=== PATIENT | male | born 1955 | race Caucasian/White ===

== ENCOUNTER 2019-10-05 12:04 | Outpatient (CLI) | payer OTHER, SELFPAY ==
--- NOTE | ~2019-10-05 | CT_ITS ---
EXAMINATION: CT abdomen pelvis wo con DATE: 10/05/2019 13:09 INDICATION: Left lower quadrant pain TECHNIQUE: Computed tomography (CT) of the abdomen and pelvis was performed without intravenous contr ast. The dose-length product was 762.38 mGy-cm. Automated exposure control and iterative reconstructi on technique were employed. COMPARISON: None. FINDINGS: Lung bases unremarkable. Heart size normal. No significant pleural or pericardial effusion. No significant vascular abnormality. No lymphadenopathy. There is a probable The liver, spleen, pancreas, adrenal glands and kidneys are unremarkable. Nonobstructive bowel gas pa ttern. Normal appendix. No evidence for appendicitis or diverticulitis. Subtle posterior bladder wall mass containing a punctate calcification. This mass measures approximately 5.5 x 4 cm and could repr esent blood clot or enlarged prostate gland. Recommend urological consultation. No hydronephrosis. IMPRESSION: 1. Possible bladder wall mass, suspicious for malignancy. Differential diagnosis includes blood clot and enlarged prostate gland causing significant bladder base impression. Recommend urological consult ation. Reviewed, dictated and finalized at location B. IMPRESSION: 1. Possible bladder wall mass, suspicious for malignancy. Differential diagnosi s includes blood clot and enlarged prostate gland causing significant bladder b ase impression. Recommend urological consultation.
== END 2019-10-05 12:05 | disposition home or self-care (01) ==
LOC: ANHIMG 12:06
PROVIDERS: PCP Internal Medicine; Visit Provider Internal Medicine
DX: R10.32 Left lower quadrant pain (principal)
CPT/HCPCS: 74176

== ENCOUNTER → 2020-05-12 06:51 | Outpatient (CLI) | payer OTHER, SELFPAY ==
[2020-05-12 21:58] LABS: SARS-CoV-2 RNA PCR Positive
== END ==
PROVIDERS: PCP Internal Medicine; Visit Provider Internal Medicine
DX: U07.1 COVID-19 (principal)
CPT/HCPCS: C9803; U0003; U0005

== ENCOUNTER 2020-06-07 10:27 | Outpatient (CLI) | payer OTHER, SELFPAY ==
[2020-06-07 10:48] LABS: Basophils Percent Auto 0.3 % (0.2-1.2); Eosinophils Absolute Auto 0.1 K/mm3 (0-0.3); Hematocrit 42.6 % (42.0-52.0); Hemoglobin 14.7 g/dL (14.0-18.0); Immature Granulocyte Absolute 0.02 K/mm3 (0.00-0.031); Immature Granulocyte Percent A 0.3 % (0-0.5); Lymphocytes Absolute Auto 1.12 K/mm3 (0.9-3.2); Mean Corpuscular HGB Conc 34.5 g/dl (32-36); Mean Corpuscular Hemoglobin 28.4 pg (26-34); Mean Corpuscular Volume 82.2 fl (80-100); Mean Platelet Volume 10.4 fl (7.4-10.4); Monocytes Absolute Auto 0.8 K/mm3 (0.1-0.6); Monocytes Percent Auto 11.6 % (2.6-8.5); Neutrophils Percent Auto 70.8 % (45.5-73.1); Platelet Count Result 230 k/mm3 (150-375); Red Blood Count 5.18 M/mm3 (4.6-6.20)
[2020-06-07 10:53] LABS: Add Urine Microscopic? YES; Appearance Urine Cloudy (Clear); Bacteria Urine Trace /hpf; Bilirubin Urine Negative (Negative); Blood Urine Negative (Negative); Color Urine Amber (Yellow); Glucose Urine UA Negative (Negative); Ketones Urine Negative (Negative); Leukocyte Esterase Ur Trace LEU/UL (Negative); Mucus Urine Heavy /lpf; Nitrate Urine Negative (Negative); Protein Urine 2+ mg/dL (Negative); Specific Grav Ur 1.017 (1.001-1.035); Squamous Epithelial Cell Urine Occasional /hpf (Few); Urobilinogen Urine Negative mg/dL (<2.0)
[2020-06-07 11:00] LABS: Alanine Aminotransferase 23 U/L (4-50); Albumin Level 3.9 g/dL (3.5-5.1); Alkaline Phosphatase 66 U/L (38-126); Anion Gap 7 mmol/L (8-16); Aspartate Amino Transferase 25 U/L (17-59); Blood Urea Nitrogen 8 mg/dL (9-20); Calcium 9.2 mg/dL (8.4-10.2); Carbon Dioxide 29 mmol/L (22-30); Chloride 103 mmol/L (98-107); Estimated Glomerular Filt Rate > 60; Glucose 140 mg/dL (75-110); Sodium 139 mmol/L (137-145)
[2020-06-07 11:01] LABS: D Dimer 0.75 ug/mL (<0.48)
== END 2020-06-07 10:28 | disposition home or self-care (01) ==
PROVIDERS: PCP Internal Medicine; Visit Provider Internal Medicine
DX: U07.1 COVID-19 (principal); R11.2 Nausea with vomiting, unspecified
CPT/HCPCS: 36415; 80053; 81001; 85025; 85380; 87086

== ENCOUNTER 2020-10-17 12:22 | Outpatient (CLI) | payer OTHER, SELFPAY ==
--- NOTE | ~2020-10-17 | US_ITS ---
EXAMINATION: US venous doppler LE RT EXAM DATE: 10/17/2020 12:59 INDICATION: Pain And Swelling Of Right Lower Leg Pain And Swelling . TECHNIQUE: Multiple grayscale, color flow and Doppler images of the right lower extremity deep venous system were obtained and reviewed. There is no prior study for comparison. FINDINGS: The right common femoral, femoral and profunda veins demonstrate normal color flow, respira tory variation, augmentation and compressibility. Compressibility, color flow confirmed within the r ight popliteal, posterior tibial, peroneal, and greater saphenous veins. IMPRESSION: 1. No right lower extremity deep venous thrombosis. Reviewed, dictated and finalized at location B.
== END 2020-10-17 12:23 | disposition home or self-care (01) ==
PROVIDERS: PCP Internal Medicine; Visit Provider Internal Medicine
DX: M79.89 Other specified soft tissue disorders (principal)
CPT/HCPCS: 93971

== ENCOUNTER 2020-10-30 16:42 | Outpatient (CLI) | payer OTHER, SELFPAY ==
--- NOTE | ~2020-10-30 | CT_ITS ---
EXAMINATION: CT abdomen pelvis wo con DATE: 10/30/2020 17:31 INDICATION: Right upper quadrant abdominal pain. TECHNIQUE: Computed tomography (CT) of the abdomen and pelvis was performed without intravenous contr ast. Automated exposure control and iterative reconstruction technique were employed. The dose-length product was 997.46 mGy-cm. COMPARISON: 10/05/2019 FINDINGS: Lung bases are clear. Heart size is normal. No pericardial or pleural effusion. Small sliding-type hi atal hernia. Ununited healing subacute fractures of the posterior right seventh-ninth ribs. Approxima tely 3.7 x 2.9 cm hypodense greater than fluid attenuation mass with poorly defined margins at the ju nction of segments 4A and 4B of the liver which appears new since the prior study. Gallbladder, splee n, pancreas, bilateral adrenal glands and kidneys are normal. No urolithiasis or hydronephrosis. Blad beatrice is normal. Prostatomegaly with a few tiny prostatic calcifications. Moderate to large amount of s tool scattered throughout the colon. Small bowel and appendix are normal. No free intraperitoneal gas or fluid. No pathologically enlarged abdominal or pelvic lymphadenopathy. Mild thoracolumbar spondyl osis. IMPRESSION: 1. Indeterminate 3.7 x 2.9 cm hypodense region in the left hepatic lobe which is new since the prior study. There is a wide differential including focal fat, hemangioma, focal nodular hyperplasia, and m alignancy either primary or metastatic. Differential would also include hepatic abscess in the approp riate clinical setting although the mass abuts the liver capsule with no adjacent inflammatory strand ing to more specifically suggest this. Would recommend pre and postcontrast MRI for further evaluatio n. 2. Small sliding-type hiatal hernia. 3. Ununited healing subacute fracture the posterior right seventh-ninth ribs. 4. Prostatomegaly. Reviewed, dictated and finalized at location A. IMPRESSION: 1. Indeterminate 3.7 x 2.9 cm hypodense region in the left hepatic lobe which i s new since the prior study. There is a wide differential including focal fat, hemangioma, focal nodular hyperplasia, and malignancy either primary or metasta tic. Differential would also include hepatic abscess in the appropriate clinica l setting although the mass abuts the liver capsule with no adjacent inflammato ry stranding to more specifically suggest this. Would recommend pre and postcon trast MRI for further evaluation. 2. Small sliding-type hiatal hernia. 3. Ununited healing subacute fracture the posterior right seventh-ninth ribs. 4. Prostatomegaly.
== END 2020-10-30 16:43 | disposition home or self-care (01) ==
PROVIDERS: PCP Internal Medicine; Visit Provider Internal Medicine
DX: R10.811 Right upper quadrant abdominal tenderness (principal); R93.2 Abnormal findings on diagnostic imaging of liver and biliary tract; K44.9 Diaphragmatic hernia without obstruction or gangrene; S22.31XK Fracture of one rib, right side, subsequent encounter for fracture with nonunion; N40.0 Benign prostatic hyperplasia without lower urinary tract symptoms
CPT/HCPCS: 74176

== ENCOUNTER 2020-11-29 09:51 | Outpatient (CLI) | payer OTHER, SELFPAY ==
--- NOTE | ~2020-11-29 | US_ITS ---
EXAMINATION: US right upper quadrant EXAM DATE: 11/29/2020 10:22 INDICATION: Other Specified Diseases Of Liver. Liver Lesion . TECHNIQUE: Multiple grayscale and Doppler images of the abdomen right upper quadrant were obtained (b y a technologist who performed the scan) and subsequently reviewed. Correlation is made to CT . FINDINGS: The pancreatic head and body are normal in appearance. The pancreatic tail is not visualized. The l iver has normal echogenicity and contour. There is geographically shaped peripheral hyperechoic lulu on measuring 3.6 x 2.8 x 2.8 cm. Appearance is consistent with focal fatty infiltration, but is not s pecific for that diagnosis. There is no evidence of intrahepatic biliary duct dilation. Portal veno us flow was seen in the hepatopedal, normal direction and has normal Doppler waveform. No right-side d hydronephrosis. Common bile duct measures 4 mm, which is normal. The gallbladder wall is normal in thickness, with ex pected amount of distention. No sonographic evidence of pericholecystic fluid. There is no cholelit hiases. Technologist performing exam reports patient did not demonstrate sonographic Ribeiro's sign. Please note that this sign is less reliable in patients who have received pain medication. IMPRESSION: Focal liver region sonographically consistent with hepatic steatosis, but not specific fo r that diagnosis. Reviewed, dictated and finalized at location A. IMPRESSION: Focal liver region sonographically consistent with hepatic steatosi s, but not specific for that diagnosis.
== END 2020-11-29 09:52 | disposition home or self-care (01) ==
LOC: ANHIMG 09:57
PROVIDERS: PCP Internal Medicine
DX: K76.89 Other specified diseases of liver (principal)
CPT/HCPCS: 76705

== ENCOUNTER 2021-02-09 08:58 | Outpatient (CLI) | payer OTHER, SELFPAY ==
--- NOTE | ~2021-02-09 | CT_ITS ---
EXAMINATION: CT abdomen w con DATE: 02/09/2021 09:55 INDICATION: Right-sided abdominal pain for 5 months TECHNIQUE: Computed tomography (CT) of the abdomen was performed without intravenous contrast. Automa amparo exposure control and iterative reconstruction technique were employed. Exam dose: 1442.44 mGy-cm total exam DLP. COMPARISON: None. FINDINGS: The lung bases are clear of infiltrate or consolidation. Normal heart size. No pericardial or pleural effusion. The liver, spleen, pancreas, and adrenal glands and kidneys are unremarkable with the exception of 6 mm probable upper pole right renal cyst. The gallbladder is unremarkable. No bile duct or pancreatic duct dilatation. No urinary tract calculus or hydroureteronephrosis. Normal caliber of the abdominal aorta. No intraperitoneal or retroperitoneal mass lesion or adenopath y or ascites. Small sliding hiatal hernia. Normal appendix. No bowel obstruction, bowel wall thickening, pneumatosis or intraperitoneal free air is detected. Small fat-containing umbilical hernia. Healing posterior lateral right seventh through ninth rib fractures. Diffuse idiopathic skeletal hyperostosis of the lower thoracic spine. IMPRESSION: Healing posterolateral right seventh through ninth rib fractures Normal appendix 6 mm upper pole right renal cyst Small sliding hiatal hernia Small fat-containing umbilical hernia Reviewed, dictated and finalized at Location A. Reviewed, dictated and finalized at location A. PRESERVATION SCIENTIST
[2021-02-09 09:57] LABS: Estimated Glomerular Filt Rate > 60
== END 2021-02-09 08:59 | disposition home or self-care (01) ==
PROVIDERS: PCP Internal Medicine
DX: K76.9 Liver disease, unspecified (principal); S22.41XD Multiple fractures of ribs, right side, subsequent encounter for fracture with routine healing; N28.1 Cyst of kidney, acquired; K44.9 Diaphragmatic hernia without obstruction or gangrene; K42.9 Umbilical hernia without obstruction or gangrene
CPT/HCPCS: 74160; Q9967

== ENCOUNTER 2021-03-01 11:00 | Outpatient (RCR) | payer OTHER, SELFPAY ==
--- NOTE | 2021-02-06 15:47 | PTOPEVAL ---
PHYSICAL THERAPY EVALUATION AND PLAN OF CARE Thank you for referring Will June to [facility].? The patient is scheduled to be seen for therapy? 1-2x/week for 3-4 weeks. Please review, sign, date and return this plan of care MAGUI. I agree with and certify that the following plan of care is medically necessary. Referring Physician Date Attending Provider: Yosvany Cowan, DO Evaluation Diagnosis right sided rib pain Onset 09/27/2020 Additional Evaluation Detail throughout session patient would tell me that each activity hurts and feels it . I would ask him how much it hurts and he would say a 5/ 10, which is the amount of pain he said he has just at rest. With that, educated him and instructed that if he is doing an activity and it has a 5-6/10 pain that it is ok and he just take him time, but if the pain increases to a 7/10 or higher that he needs to back off for now while the ribs continue to heal Subjective Information fell as work resulting in 4 Query Text:As Reported By Patient/ rib fracutres on the right Family side - lower ribs. States that holding his arms overhead or sitting up from laying in bed cause a lot of pain in the right ribs still today. States that he did go back to work and it made the pain even worse than before. 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 Twisting motions, sweeping, getting into/out of low cars, opening car doors are all aggravating. His last x-ray was a month ago and it showed there was still some fracture- still healing. states he had an ultrasound done and something was identified on his liver, but is having another imaging study done this Friday to determine what it is Self Report Pain Assessment Right Ribs Reported Pain
--- NOTE | 2021-03-01 11:28 | PTOPEVAL ---
PHYSICAL THERAPY DISCHARGE NOTE Thank you for referring Will June to [facility].? Please review, sign, date and return this plan of care MAGUI. I agree with and certify that the following plan of care is medically necessary. Referring Physician Date Attending Provider: Yosvany Cowan, DO Discharge Diagnosis right sided rib pain Onset 09/27/2020 Subjective Information States that he was doing very Query Text:As Reported By Patient/ well execpt that he was sick Family from the booster shot and vomiting made the ribs hurt again. States that he has had all of the imaging that was ordered. Self Report Pain Assessment Right Ribs Reported Pain Level 6 Pain Description Dull,Tender on Palpation Other Pain Description stiffness; pain Pain Score Pain Score 6: Self Report Interventions Used Interventions Used By Clinicians Exercise,Heat Pain Relief Interventions Used By Ice Patient Other Alleviating Interventions instructed he might try heat over ribs at home Upper Extremity Muscle Strength Testing Scapular/Shoulder Left Shoulder Flexion Strength 4+ Good + Shoulder Extension Strength 4+ Good + Shoulder Abduction Strength 4+ Good + Shoulder Medial Rotation Strength 4+ Good + Shoulder Lateral Rotation Strength 4+ Good + Right Shoulder Flexion Strength 4+ Good + Shoulder Extension Strength 4+ Good + Shoulder Abduction Strength 4+ Good + Shoulder Medial Rotation Strength 4+ Good + Shoulder Lateral Rotation Strength 4+ Good + Shoulder Strength Comments pain in right lower ribs with MMT Palpation Assessment Palpation Palpation less sensitive to palpation over right ribs. Gait Assessment Gait Pattern Assessment Gait Pattern No Deviations/Normal Stair Climbing Assessment Stair Climbing Assessment Stair Climbing Assistive Devices Railings Number of Steps Climbed (Steps) 4 Number of Repetitions (Repetitions) 2 Technique Alternating Steps Stair Climbing Direction Both Up and Down Stair Climbing Ability Independent Rehab Teaching Rehab Teaching Teaching Topic Rehab Teaching Topic Components Exercise,Home Program As Pertains To Safety,Technique Recipient Patient Learning Preferences Demonstration,Discussion,Group Instruction,One-on-One Instruction Barriers to Learning None Readiness to Learn
== END 2021-04-23 09:30 | disposition home or self-care (01) ==
LOC: ANHPT 11:00
PROVIDERS: PCP Internal Medicine; Visit Provider Student in an Organized Health Care Education/Training Program
DX: R07.81 Pleurodynia (principal); S22.41XD Multiple fractures of ribs, right side, subsequent encounter for fracture with routine healing
CPT/HCPCS: 97110; 97163

== ENCOUNTER 2023-11-29 09:01 | Emergency (ER) | payer OTHER, SELFPAY ==
[2023-11-29 09:18] VITALS: BP 178/89; PULSE 77; RESP 18; TEMP 36.4; O2SAT 100
--- NOTE | 2023-11-29 09:20 | ED.GENADULT ---
HPI - General Adult General Chief complaint: Upper Respiratory Infection Stated complaint: covid test Time Seen by Provider: 11/29/23 09:20 Source: patient Mode of arrival: ambulatory Limitations: no limitations History of Present Illness HPI narrative: 68-year-old male patient presents the [facility] with request for COVID testing. Patient states his son who lives with them tested positive about 2 days ago and he started having symptoms yesterday. Patient states symptoms include cough, very slight shortness of breath at times, denies chest pain. Patient states no fevers but has had some chills and sweats at night. Denies any pain at this time. Related Data Home Medications Medication Instructions Recorded Confirmed blood sugar diagnostic (Contour 11/29/23 11/29/23 Next Test Strips) empagliflozin 25 mg tablet 25 mg PO DAILY 11/29/23 11/29/23 (Jardiance) finasteride 5 mg tablet 5 mg PO DAILY 11/29/23 11/29/23 gabapentin 100 mg capsule 100 mg PO TID 11/29/23 11/29/23 glimepiride 2 mg tablet 2 mg PO DAILY 11/29/23 11/29/23 lisinopril 10 mg tablet 10 mg PO DAILY 11/29/23 11/29/23 meloxicam 15 mg tablet 15 mg PO DAILY 11/29/23 11/29/23 metformin 500 mg tablet,extended 1,000 mg PO BID 11/29/23 11/29/23 release 24 hr prednisone 20 mg tablet See Rx Instructions .Route .COMPLEX 11/29/23 11/29/23 rosuvastatin 10 mg tablet 10 mg PO DAILY 11/29/23 11/29/23 semaglutide 14 mg tablet (Rybelsus) 14 mg PO DAILY 11/29/23 11/29/23 sildenafil 100 mg tablet 100 mg PO PRN PRN Erectile 11/29/23 11/29/23 Dysfunction tamsulosin 0.4 mg capsule 0.4 mg PO DAILY 11/29/23 11/29/23 Allergies Allergy/AdvReac Type Severity Reaction Status Date / Time Sulfa (Sulfonamide Allergy Mild Swelling Unverified 01/14/16 08:44 Antibiotics) calamine Allergy Unknown Verified 01/14/16 08:44 diphenhydramine Allergy Unknown Verified 01/14/16 08:44 prednisone Allergy Unknown Verified 01/14/16 08:44 TRIAMCINOLONE ACETONIDE Allergy Unknown Uncoded 01/14/16 08:44 Review of Systems Review of Systems: CONSTITUTIONAL: Denies fever, Positive chills, and sweats. EYES: Denies visual changes, redness, or discharge. ENT: positive rhinorrhea, congestion, denies sore throat, denies otalgia. CARDIOVASCULAR: Denies chest pain, palpitations, or edema. RESPIRATORY: positive mild cough with very slight dyspnea. GASTROINTESTINAL: Denies abdominal pain, nausea, vomiting, or diarrhea. GENITOURINARY: Denies dysuria or hematuria. SKIN: Denies rash or itching. MUSCULOSKELETAL: Denies back pain, joint pain, or myalgia. NEUROLOGIC: Denies headache, numbness, or weakness. PSYCHIATRIC: Denies anxiety or depression. 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 There is no relevant family history pertinent to the presenting complaint. Exam Narrative: GENERAL: Well-appearing, well-nourished, and in no acute distress. HEAD: Normocephalic, atraumatic. EYES: PERRLA and EOMI. ENT: Nares clear, no rhinorrhea or epistaxis. Mucous membranes moist. NECK: Supple. No lymphadenopathy CHEST: Clear to auscultation. No respiratory distress. HEART: Regular rate and rhythm. No murmur heard. Normal peripheral pulses. ABDOMEN: Soft, nontender, nondistended, normal active bowel sounds. EXTREMITIES: Normal range of motion. No edema. SKIN: Warm, dry, no r
== END 2023-11-29 09:58 | disposition home or self-care (01) ==
PROVIDERS: Emergency Provider Nurse Practitioner Family; PCP Internal Medicine
DX: J06.9 Acute upper respiratory infection, unspecified (principal); Z20.822 Contact with and (suspected) exposure to COVID-19; K21.9 Gastro-esophageal reflux disease without esophagitis; E11.9 Type 2 diabetes mellitus without complications; Z79.84 Long term (current) use of oral hypoglycemic drugs; Z85.828 Personal history of other malignant neoplasm of skin
CPT/HCPCS: 87426; 99212; G0463

== ENCOUNTER 2024-05-10 18:53 | Emergency (ER) | payer OTHER, SELFPAY ==
--- OUTSIDE RECORDS SUMMARY | 2024-05-10 18:58 | XMS_ITS | Encounter Summary ---
Author Organization [facility] Address 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
--- OUTSIDE RECORDS SUMMARY | 2024-05-10 18:58 | XMS_ITS | Encounter Summary ---
Author Organization [facility] Address [address] [place] [address] Care Team Providers Care Avid Editor Name Role Phone Unavailable Primary Care Provider Unavailabl e Encounter Details Date Type Department Care Team (Late st Contact Info) Description 05/20/2006 Outpatient Historical [facility] Support Serv. ([facility]) [address] 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
--- OUTSIDE RECORDS SUMMARY | 2024-05-10 18:58 | XMS_ITS | Continuity of Care Document ---
Author Organization [facility] Address [address] [facility] [address] [place] [address] Phone Care Team Providers Care Tank Bottom Assembler Name Role Phone Kalyani Colin Unavailable Unavailable Advance Directives Directive Yes / No Effective Date File Name No Information Encounters Encounter Description Practice Location Reason(s) For Visit Diagnoses Date Provider Providers Copied on Encounter [facility], [address], [place], [place], [id number], [place] tel:[phone] [facility] No Information [address] , [address], [place], [address], [place]. tel:[phone] Family History Family Member Type Diagnosis Age At Onset No Information Payers Payer name Insurance type Covered libertarian ID Authoriza tion(s) No Information Social History Type Description Quantity Date Captured Comments Sex Male Smoking Status No Information Chief Complaint And Reason For Visit No Information Reason For Referral Reason For Referral No Information History Of Present Illness Encounter Date Complaint History Of Prese nt Illness No Information Functional Status Date Functional Assessmen t No Information Instructions Date Instruction Additional Infor mation No Information Assessments Type Assessment Date No Information Patient Care Teams Name Effective Dates (start - stop) Status Members No Information
--- OUTSIDE RECORDS SUMMARY | 2024-05-10 18:58 | XMS_ITS | Encounter Summary ---
Author Organization [facility] Address 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 Gender Identity Not on file Sexual Orientation Not on file documented as of this encounter Plan of Treatment Not on file documented as of this encounter Procedures Procedure Name Priority Date/Time Associated Diagnosis Comments HEMOGLOBIN AND HEMATOCRIT Routine 05/20/2006 11:38 AM LEAD DATABASE ADMINISTRATOR BASIC METABOLIC PANEL Routine 05/20/2006 11:38 AM LEAD DATABASE ADMINISTRATOR documented in this encounter Results * (ABNORMAL) BASIC METABOLIC PANEL (05/20/2006 11:38 AM LEAD DATABASE ADMINISTRATOR) GLUCOSE 237(H) 65 - 99 mg/dL INTERFACE SYSTEM CREATININE 0.77 0.67 - 1.17 mg/dL INTERFACE SYSTEM CALCIUM 9.2 8.4 - 10.2 mg/dL INTERFACE SYSTEM BUN 14 6 - 20 mg/dL INTERFACE SYSTEM SODIUM 138 135 - 145 mmol/L INTERFACE SYSTEM POTASSIUM 4.2 3.5 - 4.9 mmol/L INTERFACE SYSTEM CHLORIDE 103 96 - 108 mmol/L INTERFACE SYSTEM CO2 26 22 - 30 mmol/L INTERFACE SYSTEM GFR, >60 >=60 mL/min/1. 7 sq meter INTERFACE SYSTEM GFR >60 >=60 mL/min/1. 7 sq meter INTERFACE SYSTEM Comment: Estimated GFR rate interpretative information for both Americans and non- Americans is available on the [facility] Intranet at: [email or web address] Select: Lab Policies and Procedures Select: Reference Ranges - GFR 05/20/2006 11:3 8 AM LEAD DATABASE ADMINISTRATOR us Aaron Bridges MD CHEMISTRY ORDERABLES Edited INTERFACE SYSTEM Refer to clinic/hospital department * HEMOGLOBIN AND HEMATOCRIT (05/20/2006 11:38 AM LEAD DATABASE ADMINISTRATOR) HEMATOCRIT 42.8 40.0 - 48.0 % INTERFACE SYSTEM HEMOGLOBIN 15.6 13.6 - 16.5 g/dL INTERFACE SYSTEM 05/20/2006 11:3 8 AM LEAD DATABASE ADMINISTRATOR us Aaron Bridges MD HEMATOLOGY ORDERABLES Edited INTERFACE SYSTEM Refer to clinic/hospital department documented in this encounter Visit Diagnoses Diagnosis Laboratory examination- Primary documented in this encounter
--- OUTSIDE RECORDS SUMMARY | 2024-05-10 18:59 | XMS_ITS | Encounter Summary ---
Author Organization [facility] Address [address] [place] [address] Care Team Providers Care Engraver Seals Name Role Phone Ignacio Miranda MD Primary Care Provider [phone] Spenser Armendariz MD Unavailable [phone] Reason for Visit * Reason Onset Date Comments Record Request 10/31/2022 Encounter Details Date Type Department Care Team (Late st Contact Info) Description 10/31/2022 MyCRotation Medicalt Message Enc [facility] Family & Internal Medicine [place] [address] [place] [phone] Ignacio Miranda MD [address] [place] [address] Films of X-rays and scans Social History Tobacco Use Types Packs/Day Years Used Date Smoking Tobacco: Never Smokeless Tobacco: Never Alcohol Use Standard Drinks/Week Comments No 0 (1 standard drink = 0.6 oz pur e alcohol) AUDIT-C Answer Date Recorded Frequency of Alcohol Consumption Never 05/07/2018 Average Number of Drinks Not on file 019 Frequency of Binge Drinking Not on file 04/24 PHQ-2 Answer Date Recorded Patient Health Questionnaire-2 Score 0 06/18/2022 Sex and Gender Information Value Date Recorded Sex Assigned at Male 05/07/2018 3:15 PM BOBBIN PRESSER Legal Sex Male 4:31 PM CDT Gender Identity Male 05/07/2018 3:15 PM BOBBIN PRESSER Sexual Orientation Straight 05/07/2018 3: 15 PM BOBBIN PRESSER documented as of this encounter Progress Notes * Irina Young - 11/13/2022 8:30 AM CDT Pts called and would like to continuous pickling line pickler helper images form the office that are from 09.27.2020-current (rib xrays) Please call when completed documented in this encounter Plan of Treatment Upcoming Encounters Date Type Department Care Team (Late st Contact Info) Description 06/25/2024 10:00 AM CDT Office Visit [facility] [phone] Prasad Santiago MD [address] [facility] [address] [place] [phone] 07/21/2024 10:00 AM CDT Laboratory Only [facility] Family & Internal Medicine - [address] [phone] Ignacio Miranda MD [address] [place] [address] 07/28/2024 10:40 AM CDT Office Visit [facility] Family & Internal [facility] - [address] [phone] Ignacio Miranda MD [address] [place] [address] 10/08/2024 10:00 AM CDT Office Visit [facility] Multispecialty Care - [facility] [address] [facility], [address] [place] [phone] Boris Brown MD 3 [place] [address] documented as of this encounter Visit Diagnoses Not on filedocumented in this encounter Additional Health Concerns Infection Onset Date Last Indicated Resolved Time COVID-19 Rule Out 03/10/2023 03/10/2023 03/10/2023 12:12 PM BOBBIN PRESSER COVID-19 Rule Out 03/25/2023 03/25/2023 03/25/2023 2:20 PM BOBBIN PRESSER COVID-19 Rule Out 03/25/2023 03/25/2023 03/27/2023 1:28 AM BOBBIN PRESSER Assessment Noted Time PHQ-9 Depression Total Score: 0 06/21/19 22 12:50 PM CDT documented as of this encounter Care Teams Engraver Seals Relationship Specialty Start Date End Date Ignacio Miranda MD [address] [place] [address] PCP - General 10/18/16 Spenser Armendariz MD [address] [place] [address] Consulting Physician UROLOGY 10/05/19 documented as of this encounter
--- OUTSIDE RECORDS SUMMARY | 2024-05-10 18:59 | XMS_ITS | Clinical Summary ---
Author Organization [facility] Address [address] [place] [address] Care Team Providers Care Glass Calibrator Name Role Phone Ignacio Miranda MD Primary Care Provider [phone] Spenser Armendariz MD Unavailable [phone] Allergies Active Allergy Reactions Criticality Noted Date Comments Calamine Rash Medium 12/31/2016 Skin bubbles up Diphenhydramine Rash,Unknown Medium 03/06/2016 Skin bubbles up Iodine Rash Low 06/09/2012 Prednisone Rash,Unknown Medium 03/06/2016 Skin bubbles up Sulfa Antibiotics Rash,Unknown Medium 09/19/2011 Skin bubbles up Triamcinolone Rash,Unknown Medium 03/06/2016 Skin bubbles up Skin bubbles up Medications aspirin 81 MG tablet Take 1 tablet (81 mg total) by mouth. 01/01/20 17 Active Lancets MiscIndication s:Controlled type 2 diabetes mellitus without complication, without long-term current use of insulin ([facility]) 1 Device by Does not apply route daily. 100 Container 1 09/16/19 20 Active tamsulosin 0.4 MG Cap Take 1 capsule (0.4 mg total) by mouth nightly. 12/11/19 20 Active finasteride 5 MG tablet Take 1 tablet (5 mg total) by mouth every evening. 01/04/20 20 Active Lancet Devices (MICROLET NEXT LANCING DEVICE) MiscIndication s:Type 2 diabetes mellitus with hyperglycemia, without long-term current use of insulin ([facility]) 1 Device by Does not apply route daily. 100 each 3 02/27/20 21 Active ketoconazole (NIZORAL) 2 % shampoo Apply topically as needed for Itching. 11/13/19 22 Active econazole nitrate (SPECTAZOLE) 1 % cream Apply topically daily as needed (fungal infection). 11/14/19 22 Active desonide (DESOWEN) 0.05 % cream Apply topically 2 (two) times daily as needed (rash, irritation). 11/13/19 Active ipratropium (ATROVENT) 0.03 % nasal spray 2 sprays by Nasal route 2 (two) times daily as needed for Rhinitis. Active vitamin B-12 (CYANOCOBALAMI N) (CYANOCOBALAMI N) 1000 mcg tablet Take 1 tablet (1,000 mcg total) by mouth daily. Active JARDIANCE 25 MG tabletIndicati ons:Type 2 diabetes mellitus with hyperglycemia, without long-term current use of insulin ([facility]) TAKE 1 TABLET(25 MG) BY MOUTH DAILY 90 tablet 3 03/20/20 23 Active RYBELSUS 14 MG TabIndications :Diabetes Mellitus Take 1 tablet by mouth daily. Indications: Diabetes 90 tablet 1 04/08/19 24 Active omeprazole (PRILOSEC) 40 MG capsuleIndicat ions:Chronic GERD TAKE 1 CAPSULE(40 MG) BY MOUTH DAILY 90 capsule 3 08/06/19 24 Active glimepiride (AMARYL) 2 MG tablet Take 1 tablet (2 mg total) by mouth daily. 08/05/19 24 Active meloxicam (MOBIC) 15 MG tabletIndicati ons:De Quervain's tenosynovitis, left TAKE 1 TABLET(15 MG) BY MOUTH DAILY 30 tablet 1 10/07/19 24 Active CONTOUR NEXT TEST test stripIndicatio ns:Type 2 diabetes mellitus with hyperglycemia, without long-term current use of insulin ([facility]) USE TO TEST EVERY DAY 100 strip 3 11/10/19 24 Active lisinopril (PRINIVIL) 10 MG tabletIndicati ons:Primary hypertension,T ype 2 diabetes mellitus with hyperglycemia, without long-term current use of insulin ([facility]) TAKE 1 TABLET(10 MG) BY MOUTH DAILY 90 tablet 1 01/05/20 24 Active sildenafil (VIAGRA) 100 MG tabletIndicati ons:Erectile dysfunction, unspecified erectile dysfunction type TAKE 1 TABLET(100 MG) BY MOUTH DAILY NEEDED FOR ERECTILE DYSFUNCTION 30 tablet 04/19/19 25 Active rosuvastatin (CRESTOR) 10 MG tabletIndicati ons:Dyslipidem ia TAKE 1 TABLET(10 MG) BY MOUTH EVERY NIGHT AT BEDTIME 90 tablet 1 05/03/19 25 Active metFORMIN ER (GLUCOPHAGE-XR ) 500 MG 24 hr tabletIndicati ons:Controlled type 2 diabetes mellitus without complication, without long-term current use of insulin ([facility]) TAKE 2 TABLETS(1000 MG) BY MOUTH TWICE DAILY 360 tablet 3 05/07/19 25 Active sildenafil (VIAGRA) 100 MG tabletIndicati ons:Erectile dysfunction, unspecified erectile dysfunction type TAKE 1 TABLET(100 MG) BY MOUTH DAILY NEEDED FOR ERECTILE DYSFUNCTION 30 tablet 12/28/19 23 025 Discontinued metFORMIN ER (GLUCOPHAGE-XR ) 500 MG 24 hr tabletIndicati ons:Controlled type 2 diabetes mellitus without complication, without long-term current use of insulin ([facility]) Take 2 tablets (1,000 mg total) by mouth 2 (two) times daily. 360 tablet 3 11/11/19 24 025 Discontinued rosuvastatin (CRESTOR) 10 MG tabletIndicati ons:Dyslipidem ia TAKE 1 TABLET(10 MG) BY MOUTH EVERY NIGHT AT BEDTIME 90 tablet 01/22/20 24 025 Discontinued Active Problems Problem Noted Date Diagnosed Date ALEA (obstructive sleep apnea) 12/21/2023 Hyperopia 10/02/2023 Precordial pain 06/06/2023 Dizziness 06/06/2023 Sleep disorder 06/06/2023 Meningioma (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 SE discussed. Solar purpura 04/24/2020 Overview (10/03/2020): Last Assessment & Plan: Reassured. Elevated IOP, bilateral 12/31/2018 Localized osteoarthritis of left knee 08/06/2018 Left knee pain, unspecified chronicity 9 Martin cyst, left 08/06/2018 Actinic keratosis 08/04/2018 Adhesive capsulitis of left shoulder 05/19/2018 Chronic left shoulder pain 05/19/2018 Erectile dysfunction 12/23/2017 Neuromuscular weakness (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) 12/24/2015 Overview (10/02/2023): Type 2 diabetes mellitus without complication, without long-term current use of insulin Type 2 diabetes mellitus without complication, without long-term current use of insulin Last Assessment & Plan: Chronic, stable Risk of hypoglycemia discussed Lower Glimepiride to 2 mg daily Continue Rybelsus, Metformin and Jardiance Diet and exercise Chronic GERD 06/17/2012 Vitamin D deficiency 09/19/2011 Resolved Problems Problem Noted Date Diagnosed Date Resolved Date Influenza A 03/13/2022 06/27/2022 COVID-19 05/15/2020 02/26/2021 Encounters Date Type Department Care Team Description 05/10/2024 MyChart Message Enc [facility] Internal [address] [address] Ignacio Miranda MD Not feeling well 04/28/2024 8:40 AM ONLINE COMMUNICATIONS MANAGER Office Visit [facility] Internal [address] [address] Ignacio Miranda MD Follow Up; Trigeminal Neuralgia; Diabetes; Hyperlipidemia; Vitamin D Deficiency; Hypertension; B12 Deficient ; Flank Pain (Patient c/o B/L flank pain x1 month. Patient noticed when lifting/shoveling snow, he couldn't move for a week. ) 04/28/2024 Travel 04/09/[address] [address] Ignacio Miranda MD Prior Authorization (Rybelsus 14mg) 03/09/2024 9:40 AM ONLINE COMMUNICATIONS MANAGER Allied Health/Nurse Visit [facility] Internal [address] [address] Ignacio Miranda MD Allied Health Visit (RSV vaccine) 03/09/2024 Travel 03/02/2024 1:40 PM ONLINE COMMUNICATIONS MANAGER Allied Health/Nurse Visit [facility] Internal [address] [address] Ignacio Miranda MD Allied Health Visit 03/02/2024 Travel 02/26/2024 9:20 AM ONLINE COMMUNICATIONS MANAGER Office Visit [facility] - [place] [address] [place] [address] Vince Rodas MD Follow Up (Left cmc ) 02/26/2024 Travel 02/20/2024 Telephone [facility] [place] [address] [place] [address] Denis Clayton, MACHINE FEED OPERATOR Appointment Request from Last 3 Months Immunizations Name Administration Dates Next Due Arexvy Respiratory Syncytial Virus (RSV, adjuvanted) 0.5 mL, PF 03/09/2024 Fluzone High Dose (IIV, triv alent, 0.5mL) 03/02/2024 Fluzone High Dose - >Age 65 (Prefilled Syringe) 12/30/2022,01/07/2022,01/11/2021,2019,12/31/2018 Influenza (Generic) 12/14/2021,01/22/2018 MODERNA COVID-19 BIVALENT (1 2+), MRNA, LNP-S, PF 02/06/2022 MODERNA COVID-19 (12+) MRNA, LNP-S, PF, 100 MCG/ 0.5 ML DOSE 06/28/2020,05/05/2020 MODERNA COVID-19 (STUMPER FELLER KATHRYN BELLE), MRNA, LNP-S, PF, 50 MCG/ 0.25 ML DOSE 02/27/2021 Pneumococcal (Pneumovax 23) 01/19/2020 Pneumococcal (Prevnar 13) 12/31/2018 Family History Medical History Relation Comments Cancer Brother Heart Disease Brother Open Heart Brother Stent Cardiac Brother Valve Disease Brother Diabetes Father Heart Attack Father Heart Disease Father Cancer Paternal Uncle 1 Heart Disease Paternal Uncle 1 Diabetes Paternal Uncle 2 Relation Status Comments Brother Father Paternal Uncle 1 Paternal Uncle 2 Social History Tobacco Use Types Packs/Day Years Used Date Smoking Tobacco: Never Smokeless Tobacco: Never Tobacco Cessation:Counseling Given: No Alcohol Use Standard Drinks/Week Comments No 0 (1 standard drink = 0.6 oz pur e alcohol) AUDIT-C Answer Date Recorded Frequency of Alcohol Consumption Never 05/07/2018 Average Number of Drinks Not on file 019 Frequency of Binge Drinking Not on file 04/24 PHQ-2 Answer Date Recorded Patient Health Questionnaire-2 Score 0 04/28/2024 Sex and Gender Information Value Date Recorded Sex Assigned at Male 05/07/2018 3:15 PM ONLINE COMMUNICATIONS MANAGER Legal Sex Male 4:31 PM CDT Gender Identity Male 05/07/2018 3:15 PM ONLINE COMMUNICATIONS MANAGER Sexual Orientation Straight 05/07/2018 3: 15 PM ONLINE COMMUNICATIONS MANAGER Last Filed Vital Signs Vital Sign Reading Time Taken Comments Blood Pressure 126/76 04/28/2024 9:25 AM ONLINE COMMUNICATIONS MANAGER Pulse 84 04/28/2024 9:25 AM ONLINE COMMUNICATIONS MANAGER Temperature 36.8 C (98.2 F) 04/28/2024 9:25 AM ONLINE COMMUNICATIONS MANAGER Respiratory Rate 16 04/28/2024 9:25 AM ONLINE COMMUNICATIONS MANAGER Oxygen Saturation 98% 04/28/2024 9:25 AM ONLINE COMMUNICATIONS MANAGER Inhaled Oxygen Concentration - - Weight 101.8 kg (224 lb 8 oz) 04/28/2024 9:25 AM ONLINE COMMUNICATIONS MANAGER Height 190.5 cm (6' 3 ) 04/28/2024 9:25 AM ONLINE COMMUNICATIONS MANAGER Body Mass Index 28.06 04/28/2024 9:25 AM ONLINE COMMUNICATIONS MANAGER Plan of Treatment Upcoming Encounters Date Type Department Care Team (Late st Contact Info) Description 06/25/2024 10:00 AM CDT Office Visit [facility] [phone] Prasad Santiago MD 3 [facility] [address] [place] [phone] 07/21/2024 10:00 AM CDT Laboratory Only [facility] Family & Internal Medicine [address] [phone] Ignacio Miranda MD [address] [place] [address] 07/28/2024 10:40 AM CDT Office Visit [facility] Family & Internal Medicine [address] [address] Ignacio Miranda MD [facility] [place] [address] 10/08/2024 10:00 AM CDT Office Visit [facility] Multispecialty Care - [facility] 3 [facility], [address] [place] [phone] Boris Brown MD 3 [place] [address] Health Maintenance Due Date Last Done Comments Hepatitis C 08/20/1971 DTaP, Tdap and Td Vaccines (1 - Tdap) 1972 Zoster Vaccines (1 of 2) 08/20/2003 Diabetes: Retinopathy Eye Exam 09/13/2022 09/13/2020 COVID-19 Vaccine ( season) 2023 02/06/2022, 02/27/2021, 06/28/2020, Additional history exists Hemoglobin A1C 08/03/2024 02/04/2024, 10/23, 03/04/2023, Additional history exists Kidney Health Evaluation 02/03/2025 02/04/2024 Lipid Panel 02/03/2025 02/04/2024, 11/23, 12/18/2021, Additional history exists Colorectal Cancer Screening Colonoscopy (10 Years) 12/10/2032 12/10/2022, 10/18/2016, Pneumococcal Vaccine: 65+ Years Completed 01/19/2020, 12/31/2018 Influenza Adult Completed 03/02/2024, 11/2022, 01/07/2022, Additional history exists RSV Immunization or 60+ Years Completed 03/09/2024 PHQ-2 (Physician [place]) Completed 04/28/2024 Meningococcal B Vaccine Aged Out No l onger eligible based on patient's age to complete this topic Meningococcal Vaccine Aged Out No laurel daquan eligible based on patient's age to complete this topic RSV Immunizations Under 20 Months Aged Out No longer eligible based on patient's age to complete this topic Goals Goal Patient Goal Type Associated Problems Recent Progress Patient-Stated? Author Health - patient able to perform ADLs independently Lifestyle Michael Membreno RN Medical Devices Implanted Type Area Analysis Analyst Device Identifier Shelf Expiration Date Model / Serial / Lot Stimulator Lead Implant Lead Implant [employer] [id number] / / Description:MRI Unsafe Stimulator Implant Stimulator Implant [employer] [id number] / / Description:MRI Unsafe per M [employer]onic 03/11/2023 Stimulator Lead Extension [employer] [id number] / / Description:MRI Unsafe Procedures Procedure Name Priority Date/Time Associated Diagnosis Comments LIPID PANEL Routine 02/04/2024 9:15 AM ONLINE COMMUNICATIONS MANAGER Type 2 diabetes mellitus with hyperglycemia, without long-term current use of insulin ([facility]) Primary hypertension Dyslipidemia HEMOGLOBIN, GLYCOSYLATED Routine 02/04/2024 9:15 AM ONLINE COMMUNICATIONS MANAGER Type 2 diabetes mellitus with hyperglycemia, without long-term current use of insulin ([facility]) Primary hypertension Dyslipidemia DIABETIC RETINOPATHY EXAM (NEGATIVE)(SCAN ORDER) Routine 09/13/2020 COLONOSCOPY GENERIC (SCAN ORDER) Routine 10/18/2016 from Last 3 Months or Most Recently Relevant to Health Maintenance Results * (ABNORMAL) HEMOGLOBIN, GLYCOSYLATED (02/04/2024 9:15 AM ONLINE COMMUNICATIONS MANAGER) HGB A1C 6.7(H) 4.5 - 6.2 % 02/04/2024 3:20 PM ONLINE COMMUNICATIONS MANAGER [facility] [place] ESTIMATED AVG GLUCOSE 146(H) 74 - 106 MG/DL 02/04/2024 3:20 PM ONLINE COMMUNICATIONS MANAGER [facility] 02/04/2024 9:15 AM ONLINE COMMUNICATIONS MANAGER us Ignacio Miranda MD LABORATORY Final Result [facility] [place] [address] [facility] [place] [address], * LIPID PANEL (02/04/2024 9:15 AM ONLINE COMMUNICATIONS MANAGER) [facility] Signature CHOLESTEROL 144 <200 MG/DL 02/04/2024 3:51 PM ONLINE COMMUNICATIONS MANAGER [facility] GEMINI [place] TRIGLYCERIDES 83 <150 MG/DL 02/04/2024 3:51 PM [facility] HDL 55 >40 MG/DL 02/04/2024 3:51 PM ONLINE COMMUNICATIONS MANAGER [facility] LDL-C 72 <100 MG/DL 02/04/2024 3:51 PM ONLINE COMMUNICATIONS MANAGER [facility] VLDL CALCULATION 17 5 - 28 MG/DL 02/04/2024 3:51 PM ONLINE COMMUNICATIONS MANAGER [facility] CHOL/HDL RATIO 2.6 0.0 - 4.0 02/04/2024 3:51 PM [facility] LDL/HDL 1.3 0.41 - 2.13 02/04/2024 3:51 PM [facility] NON HDL CHOLESTEROL 89 <140 MG/DL 02/04/2024 3:51 PM [facility] 02/04/2024 9:15 AM ONLINE COMMUNICATIONS MANAGER Ignacio Miranda MD LABORATORY Final Result [facility] [address] [place] [address], * DIABETIC RETINOPATHY EXAM (NEGATIVE)(SCAN) (09/13/2020) us Documents Scanned SCANNING Final Result [facility] ONBASE * COLONOSCOPY (10/18/2016) us Documents Scanned SCANNING Final Result [facility] from Last 3 Months or Most Recently Relevant to Health Maintenance Insurance [employer] Advance Directives Documents on File Type Date Recorded Patient Abe Teacher Expl anation Legal Documents 11/11/2022 2:22 PM BILLING REQ FOR [employer] DOS 09/27/20-PRESENT FIDELIA * Full Code (Latest Code Status on File) Date Activated Date Inactivated Comments 03/10/2023 6:16 PM 03/13/2023 7:01 PM Care Teams Glass Calibrator Relationship Specialty Start Date End Date Ignacio Miranda MD [address] [place] [address] PCP - General 10/18/16 Spenser Armendariz MD [address] [place] [address] Consulting Physician UROLOGY 10/05/19
--- OUTSIDE RECORDS SUMMARY | 2024-05-10 18:59 | XMS_ITS | Encounter Summary ---
Author Organization [facility] Address [address] [facility] [place] [address] Care Team Providers Care Typing Teacher Name Role Phone Ignacio Miranda MD Primary Care Provider [phone] Reason for Visit * Reason Onset Date Comments Results 11/24/2020 Encounter Details Date Type Department Care Team (Late Contact Info) Description 11/24/2020 Telephone [facility] [address] [place] [address] Bismark Ash MD [address] [facility] [address] [place] [address] Results Social History Tobacco Use Types Packs/Day Years Used Date Smoking Tobacco: Never Smokeless Tobacco: Never Alcohol Use Standard Drinks/Week Comments No 0 (1 standard drink = 0.6 oz pur e alcohol) Sex and Gender Information Value Date Recorded Sex Assigned at Not on file Gender Identity Not on file Sexual Orientation Not on file documented as of this encounter Miscellaneous Notes * Telephone Encounter - Momo Thompson - 11/24/2020 10:14 AM CDT Pt Tanika calling for Biopsy results. Pt works and cannot use his phone there. Tanika's phone is [phone]. documented in this encounter Plan of Treatment Upcoming Encounters Date Type Department Care Team (Late Contact Info) Description 07/05/2024 9:00 AM CDT Office Visit [facility] - [facility]ermatology [facility] [facility] [place] [address] Bismark Ash MD [address] [place] [address] [address] [facility] [address] documented as of this encounter Visit Diagnoses Not on filedocumented in this encounter Care Teams Typing Teacher Relationship Specialty Start Date End Date Ignacio Miranda MD PCP - General 02/01/08 documented as of this encounter
--- OUTSIDE RECORDS SUMMARY | 2024-05-10 18:59 | XMS_ITS | Encounter Summary ---
Author Organization [facility] Address [address] [place] [address] Care Team Providers Care Rotary Drill Operator Name Role Phone Ignacio Miranda MD Primary Care Provider Spenser Armendariz MD Unavailable Encounter Details Date Type Department Care Team (Late st Contact Info) Description 08/21/2023 Global Imaging Online Message Enc [facility] [address] [place], [place] [id number] Prasad Santiago MD 3 [facility] [place] [address] [place] [address] [facility] appt Social History Tobacco Use Types Packs/Day Years [...] Date Recorded Patient Health Questionnaire-2 Score 0 06/03/2023 Sex and Gender Information Value Date Recorded Sex Assigned at Male 05/07/2018 3:15 PM CLIENT RETENTION SPECIALIST Legal Sex Male 4:31 PM CDT Gender Identity Male 05/07/2018 3:15 PM CLIENT RETENTION SPECIALIST Sexual Orientation Straight 05/07/2018 3: 15 PM CLIENT RETENTION SPECIALIST documented as of this encounter Functional Status * Are you deaf or do you have serious difficulty hearing Answer Date of Assessment Author Status No 03/10/2023 3:04 PM Odilia Galloway RN Active * Are you blind or do you have serious difficulty seeing, even when wearing glasses? Answer Date of Assessment Author Status No 03/10/2023 3:04 PM Odilia Galloway RN Active * Do you have serious difficulty walking or climbing stairs? Answer Date of Assessment Author Status No 03/10/2023 3:04 PM Odilia Galloway RN Active * Do you have difficulty dressing or bathing? Answer Date of Assessment Author Status No 03/10/2023 3:04 PM Odilia Galloway RN Active * Because of a physical, mental, or emotional condition, do you have difficulty doing errands alone such as visiting a doctor's office or shopping? Answer Date of Assessment Author Status No 03/10/2023 3:04 PM Odilia Galloway RN Active documented as of this encounter Mental Status * Because of a physical, mental, or emotional condition, do you have serious difficulty concentrating, remembering, or making decisions? Answer Entry Date Author Status No 03/10/2023 3:04 PM Odilia Galloway RN Active documented in this encounter Plan of Treatment Upcoming Encounters Date Type Department Care Team (Late st Contact Info) Description 06/25/2024 10:00 AM CDT Office Visit [facility] [address] Prasad Santiago MD [address] [facility] [address] [facility] [place] [phone] 07/21/2024 10:00 AM CDT Laboratory Only [facility] Family & Internal Medicine - [address] [phone] Ignacio Miranda MD [address] [place] [address] 07/28/2024 10:40 AM CDT Office Visit [facility] Family & Internal Medicine - [place] [address] [place] [address] Ignacio Miranda MD [address] [place] [address] 10/08/2024 10:00 AM CDT Office Visit [facility] - [facility] [address] [facility], [address] [place] [address] Boris Brown MD [address] [place] [address] documented as of this encounter Goals Goal Patient Goal Type Associated Problems Recent Progress Patient-Stated? Author Health - patient able to perform ADLs independently Lifestyle No Michael Amato, RN documented as of this encounter Visit Diagnoses Not on filedocumented in this encounter Additional Health Concerns Assessment Noted Time PHQ-9 Depression Total Score: 0 06/21/19 22 12:50 PM CDT documented as of this encounter Care Teams Rotary Drill Operator Relationship Specialty Start Date End Date Ignacio Miranda MD [address] [place] [address] PCP - General 10/18/16 Spenser Armendariz MD [address] [place] [address] Consulting Physician UROLOGY 10/05/19 documented as of this encounter
--- OUTSIDE RECORDS SUMMARY | 2024-05-10 18:59 | XMS_ITS | Encounter Summary ---
Author Organization [facility] Address [address] [place] [address] Care Team Providers Care Underwriting Clerk Name Role Phone Ignacio Miranda MD Primary Care Provider [phone] Spenser Armendariz MD Unavailable [phone] Encounter Details Date Type Department Care Team (Late st Contact Info) Description 01/11/2022 Prep for Procedure [facility] [place] [address] [id number] Shu Mullen, IAM [address] [place] [address] Social History Tobacco Use Types Packs/Day Years Used Date Smoking Tobacco: Never Smokeless Tobacco: Never Alcohol Use Standard Drinks/Week Comments No 0 (1 standard drink = 0.6 oz pur e alcohol) AUDIT-C Answer Date Recorded Frequency of Alcohol Consumption Never 05/07/2018 Average Number of Drinks Not on file 019 Frequency of Binge Drinking Not on file 04/24 PHQ-2 Answer Date Recorded PHQ-2 Score - If the patient scores above 3, please move on to questions 3-9 0 12/19/2021 Sex and Gender Information Value Date Recorded Sex Assigned at Male 05/07/2018 3:15 PM VETERINARY TECHNICIAN INSTRUCTOR Legal Sex Male 4:31 PM CDT Gender Identity Male 05/07/2018 3:15 PM VETERINARY TECHNICIAN INSTRUCTOR Sexual Orientation Straight 05/07/2018 3: 15 PM VETERINARY TECHNICIAN INSTRUCTOR COVID-19 Exposure Response Date Recorded In the last 10 days, have yo u been in contact with someone who was confirmed or suspected to have Coronavirus/COVID-19? No / Unsure 01/11/2022 9:50 AM CDT documented as of this encounter Plan of Treatment Upcoming Encounters Date Type Department Care Team (Late st Contact Info) Description 06/25/2024 10:00 AM CDT Office Visit [facility] [address] Prasad Santiago MD 3 [facility] [address] [place] [phone] 07/21/2024 10:00 AM CDT Laboratory Only [facility] Family & Internal Medicine - [address] [address] Ignacio Miranda MD [address] [place] [address] 07/28/2024 10:40 AM CDT Office Visit [facility] Family & Internal [facility] - [address] [address] Ignacio Miranda MD [address] [place] [address] 10/08/2024 10:00 AM CDT Office Visit [facility]ty Care - [facility] [address] [facility], [address] [place] [address] Boris Brown MD [address] [place] [address] documented as of this encounter Visit Diagnoses Not on filedocumented in this encounter Additional Health Concerns Infection Onset Date Last Indicated Resolved Time COVID-19 Rule Out 03/08/2022 03/08/2022 03/08/2022 2:16 PM VETERINARY TECHNICIAN INSTRUCTOR COVID-19 Rule Out 03/13/2022 03/13/2022 03/13/2022 10:48 AM VETERINARY TECHNICIAN INSTRUCTOR COVID-19 Rule Out 03/10/2023 03/10/2023 03/10/2023 12:12 PM VETERINARY TECHNICIAN INSTRUCTOR COVID-19 Rule Out 03/25/2023 03/25/2023 03/25/2023 2:20 PM VETERINARY TECHNICIAN INSTRUCTOR COVID-19 Rule Out 03/25/2023 03/25/2023 03/27/2023 1:28 AM VETERINARY TECHNICIAN INSTRUCTOR Assessment Noted Time PHQ-9 Depression Total Score: 0 06/21/19 12:50 PM CDT documented as of this encounter Care Teams Underwriting Clerk Relationship Specialty Start Date End Date Ignacio Miranda MD [address] [place] [address] PCP - General 10/18/16 Spenser Armendariz MD [address] [place] [address] Consulting Physician UROLOGY 10/05/19 documented as of this encounter
--- OUTSIDE RECORDS SUMMARY | 2024-05-10 18:59 | XMS_ITS | Encounter Summary ---
Author Organization [facility] Address [address] [place] [address] Care Team Providers Care Forensic Locksmith Name Role Phone Ignacio Miranda MD Primary Care Provider [phone] Spenser Armendariz MD Unavailable [phone] Encounter Details Date Type Department Care Team (Late st Contact Info) Description 10/04/2020 [facility]ALTH [facility]ARE [employer] Message Enc [facility] Family & Internal Medicine [facility] [address] [place] [phone] Yosvany Cowan DO [address] [place] [address] RE: Test Results Social History Tobacco Use Types Packs/Day [...] 04/24 PHQ-2 Answer Date Recorded PHQ-2 Score 0 05/13/2019 Sex and Gender Information Value Date Recorded Sex Assigned at Male 05/07/2018 3:15 PM CHIEF RECORDIST Legal Sex Male 4:31 PM CDT Gender Identity Male 05/07/2018 3:15 PM CHIEF RECORDIST Sexual Orientation Straight 05/07/2018 3: 15 PM CHIEF RECORDIST COVID-19 Exposure Response Date Recorded In the last month, have you been in contact with someone who was confirmed or suspected to have Coronavirus / COVID-19? No / Unsure 10/04/2020 7:14 AM CDT documented as of this encounter Progress Notes * Yosvany Cowan DO - 10/04/2020 3:48 PM CDT It's the same treatment and the same duration we talked about in office (4-6 weeks). He may need result note relayed to him. documented in this encounter Plan of Treatment Upcoming Encounters Date Type Department Care Team (Late st Contact Info) Description 06/25/2024 10:00 AM CDT Office Visit [facility] [address] Prasad Santiago MD [address] [facility] [address] [place] [address] 07/21/2024 10:00 AM CDT Laboratory Only [facility] Medicine - [address] [phone] Ignacio Miranda MD [address] [place] [address] 07/28/2024 10:40 AM CDT Office Visit [facility] - [address] [address] [place] [address] [place] [address] 10/08/2024 10:00 AM CDT Office Visit [facility]pec[facility]ty Care - [facility] 3 [facility], [address] [place] [phone] Boris Brown MD [address] [place] [address] documented as of this encounter Visit Diagnoses Not on filedocumented in this encounter Additional Health Concerns Infection Onset Date Last Indicated Resolved Time COVID-19 Rule Out 03/08/2022 03/08/2022 03/08/2022 2:16 PM CHIEF RECORDIST COVID-19 Rule Out 03/13/2022 03/13/2022 03/13/2022 10:48 AM CHIEF RECORDIST COVID-19 Rule Out 03/10/2023 03/10/2023 03/10/2023 12:12 PM CHIEF RECORDIST COVID-19 Rule Out 03/25/2023 03/25/2023 03/25/2023 2:20 PM CHIEF RECORDIST COVID-19 Rule Out 03/25/2023 03/25/2023 03/27/2023 1:28 AM CHIEF RECORDIST documented as of this encounter Care Teams Forensic Locksmith Relationship Specialty Start Date End Date Ignacio Miranda MD [address] [place] [address] PCP - General 10/18/16 Spenser Armendariz MD [address] [place] [address] Consulting Physician UROLOGY 10/05/19 documented as of this encounter
--- OUTSIDE RECORDS SUMMARY | 2024-05-10 18:59 | XMS_ITS | Referral Summary ---
Author Organization [facility] Address [address] [place] [address] Care Team Providers Care Multi Purpose Machine Operator Name Role Phone Ignacio Miranda MD Primary Care Provider [phone] Encounters Date Type Department Care Team Description 04/27/2024 [facility] - Interventional Radiology [address] [place] [phone] Jania Mar, RN 04/26/2024 [facility] - Interventional Radiology [address] [place] [phone] Jania Mar, RN 04/07/2024 [facility] - Interventional Radiology [address] [place] [phone] Jania Mar, RN 04/07/2024 [facility] - Interventional Radiology [address] [place] [phone] Jania Mar, RN 04/07/2024 [facility] - Interventional Radiology [address] [place] [phone] Jania Mar, RN 04/01/2024 [facility] - Interventional Radiology [address] [place] [phone] Jania Mar, RN 04/01/2024 [facility] - Interventional Radiology [address] [place] [phone] Jania aMr RN 03/31/2024 Telephone [facility] - Interventional Radiology [facility] [place] [address] Jania Mar RN 03/29/2024 Telephone Radiology 1 [place] [address] Effie Hope RN 03/29/2024 Orders Only [facility] Radiology [address] [place] [address] Andie Daugherty RN 03/26/2024 Orders Only Radiology 1 [place] [address] Effie Hope, ADALID Benign prostatic hyperplasia with urinary frequency (Primary Dx) from Last 3 Months Allergies Active Allergy Reactions Criticality Noted Date Comments Calamine Rash Medium 12/31/2016 Skin bubbles up Skin bubbles up Diphenhydramine Rash Medium Skin reaction Kenaject Rash Medium 12/31/2016 Skin bubbles up Prednisone Rash Medium Skin reaction Sulfa (Sulfonamide Antibiotics) Rash Medium Skin reaction Triamcinolone Rash Medium Skin reaction Medications omeprazole (PriLOSEC) 40 mg capsule Take 1 capsule (40 mg total) by mouth daily Active finasteride (PROSCAR) 5 mg tablet Take 1 tablet (5 mg total) by mouth daily Active tamsulosin (FLOMAX) 0.4 mg extended release capsule Take 1 capsule (0.4 mg total) by mouth daily Active aspirin 81 mg enteric coated tablet Take 1 tablet (81 mg total) by mouth daily Active ipratropium (ATROVENT) 21 mcg (0.03 %) nasal sprayIndicatio ns:Gustatory rhinitis [place] 1-2 sprays into each nostril 15-20 minutes prior to each meal. Use up to 4 times daily as needed. 30 mL 3 01/23/20 21 Active Additional Information Patient not taking.Reported on 08/05/2023 blood glucose diagnostic (glucose blood) strip Check blood sugar 3 times a day using the contour next test strips 300 each 11 04/23/19 22 Active lancets 33 gauge misc Use to test glucose 3 times a day with contour next machine 300 each 3 04/23/19 22 Active econazole 1 % cream Apply to feet 2 times daily for 4 weeks then once a week. 30 days supply. 11/14/19 22 Active rosuvastatin (CRESTOR) 10 mg tablet 09/05/19 23 Active sildenafiL (VIAGRA) 100 mg tablet 03/11/20 22 Active fluorouraciL (EFUDEX) 5 % cream APPLY TOPICALLY TO AFFECTED AREA ON THE RIGHT ARM TWICE DAILY FOR SIX WEEKS 11/23/19 23 Active cyanocobalamin (Vitamin B-12) 1,000 mcg tablet Take 1 tablet (1,000 mcg total) by mouth daily Active desonide (DESOWEN) 0.05 % cream Apply to affected area on face daily up to two weeks per month as needed. 30 days supply. Reasons: Seborrheic Dermatitis 01/23/20 23 Active lisinopriL (PRINIVIL,ZEST RIL) 10 mg tablet 07/12/19 24 Active Jardiance 25 mg tablet Take 1 tablet (25 mg total) by mouth daily 90 tablet 2 08/05/19 24 Active Rybelsus 14 mg tablet Take 1 tablet (14 mg total) by mouth oral surgery technician before breakfast 90 tablet 3 08/05/19 24 Active metFORMIN XR (GLUCOPHAGE XR) 500 mg 24 hr tabletIndicati ons:Type 2 diabetes mellitus with hyperglycemia, without long-term current use of insulin (HCC) Take 2 tablets (1,000 mg total) by mouth 2 (two) times a day Take 2 tabs PO BID, need return appointment before next refill 360 tablet 3 08/05/19 24 Active glimepiride (AMARYL) 2 mg tabletIndicati ons:Type 2 diabetes mellitus with hyperglycemia, without long-term current use of insulin (HCC) TAKE 1 TABLET(2 MG) BY MOUTH DAILY BEFORE BREAKFAST 90 tablet 3 04/19/19 25 Active glimepiride (AMARYL) 2 mg tablet Take 1 tablet (2 mg total) by mouth daily before breakfast 90 tablet 3 08/05/19 24 025 Discontinued Active Problems Problem Noted Date Diagnosed Date No diagnosis on [place] I 01/31/2023 Other chronic pain 01/31/2023 Liver mass 11/16/2020 Hypercholesterolemia 11/09/2020 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 compound 01/25/2016 Overview (07/04/2016): 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 Type 2 diabetes mellitus wit h hyperglycemia, without long-term current use of insulin 01/25/2016 Overview (07/04/2016): Type 2 diabetes mellitus without complication, without long-term current use of insulin Assessment & Plan (08/05/2023 3:07 PM CDT): Chronic, stable Risk of hypoglycemia discussed Lower Glimepiride to 2 mg daily Continue Rybelsus, Metformin and Jardiance Diet and exercise Dizziness 01/25/2016 Overview (07/04/2016): Dizziness Chest pain 01/25/2016 Overview (07/04/2016): Chest pain in adult Social History Tobacco Use Types Packs/Day Years Used Date Smoking Tobacco: Former Cigars Smokeless Tobacco: Never Tobacco Cessation:Counseling Given: Not Answered Alcohol Use Standard Drinks/Week Comments No 0 (1 standard drink = 0.6 oz pur e alcohol) AUDIT-C Answer Date Recorded Q1: How often do you have a drink containing alcohol? Never 07/24/2023 Q2: How many drinks containi ng alcohol do you have on a typical day when you are drinking? Patient does not drink Q3: How often do you have si x or more drinks on one occasion? Never 07/24/2023 Hunger Vital Sign Answer Date Recorded Within the past 12 months, y ou worried that your food would run out before you got the money to buy more. Never true 07/24/19 24 Within the past 12 months, t he food you bought just didn't last and you didn't have money to get more. Never true 07/24/2023 Personal Safety Answer Date Recorded Getting School Help Needed Not on file 03/20 Sex and Gender Information Value Date Recorded Sex Assigned at Not on file Legal Sex Male 4:13 AM CODE ENFORCEMENT SUPERVISOR Gender Identity Not on file Sexual Orientation Not on file Last Filed Vital Signs Vital Sign Reading Time Taken Comments Blood Pressure 120/70 08/05/2023 2:36 PM CDT Pulse 77 08/05/2023 2:36 PM CDT Temperature 36.4 C (97.5 F) 07/24/2023 10:56 AM CDT Respiratory Rate 14 07/24/2023 10:5 6 AM CDT Oxygen Saturation 97% 07/24/2023 10: 56 AM CDT Inhaled Oxygen Concentration - - Weight 102.2 kg (225 lb 4.8 oz) 08/05/2023 2:36 PM CDT Height 190.5 cm (6' 3 ) 08/05/2023 2:36 PM CDT Body Mass Index 28.16 08/05/2023 2:36 PM CDT Plan of Treatment Not on file Goals Goal Patient Goal Type Associated Problems Recent Progress Patient-Stated? Author CCM Chronic Pain Care Plan Chronic Care Management Worsening( 10:59 AM CDT) No Paras garcia, Leena Salinas, ADALID Note: Problem: Chronic Pain Goals: 1. Minimize further functional decline 2. Maximize quality of life 3. Control pain Strategies: - Activity/exercise program recommendation - Conservative stepwise pain medicine strategy with multi-disciplinary approach - Recommend healthy lifestyle strategies and compensatory methods as needed Medical Devices Implanted Type Area Bull Rider Device Identifier Shelf Expiration Date Model / Serial / Lot Nerve Stimulator Right: Chest Procedures Procedure Name Priority Date/Time Associated Diagnosis Comments POCT HEMOGLOBIN A1C Routine 08/05/2023 2 :36 PM CDT Type 2 diabetes mellitus with hyperglycemia, without long-term current use of insulin (CMS/HCC) (HCC) CT ABDOMEN PELVIS WO CONTRAST ED 10/25/2021 1:50 PM CDT EGFR STAT 10/25/2021 11:51 AM CDT PSA DIAGNOSTIC Routine 01/26/2015 4:40 PM CODE ENFORCEMENT SUPERVISOR from Last 3 Months or Most Recently Relevant to Health Maintenance Results * (ABNORMAL) POCT hemoglobin A1c (08/05/2023 2:36 PM CDT) Hemoglobin A1C, POC 6.4 % Blood spot 08/05/2023 2:36 PM CDT Estella Lucero MD POINT OF CARE TEST ORDERABLES Fi nal Result * CT Abdomen Pelvis WO Contrast (10/25/2021 1:50 PM CDT) Anatomical Region Laterality Modality Body N/A Computed Tomogra phy 10/25/2021 2:29 PM CDT Narrative 10/25/2021 2:34 PM CDT EXAM DESCRIPTION: CT ABDOMEN PELVIS WO CONTRAST REASON FOR STUDY: RUQ pain/diarrhea Pt c/o RT sided pain that radiates to back x 1 month along with diarrhea. Pt denies fever, N/V or urinary sx. Pt states his abd feels like it gets hard when he pushes on it or it looks swollen and pushes out when he lays down. HX of umbilical hernia TECHNIQUE: CT scan of the abdomen and pelvis performed without intravenous and without oral contrast using helical scanning technique. Reconstructed coronal and sagittal MPR images reviewed. All images stored on PACS. Automated exposure control was used as a dose optimization technique for this examination. COMPARISON: None available FINDINGS: The sensitivity for detection of visceral lesions is diminished without the use of intravenous contrast. LOWER CHEST: Minor atelectasis or scar at the lung bases. No focal consolidation. No pleural or pericardial effusion. LIVER: Normal size and morphology. No focal liver lesion. GALLBLADDER: Unremarkable. BILE DUCTS: No intrahepatic or extrahepatic biliary dilation. SPLEEN: Normal size. No focal lesions. PANCREAS: Normal parenchymal bulk and contour. No duct dilation or inflammation. ADRENALS: Normal. KIDNEYS/URINARY TRACT: Normal and symmetric renal parenchymal size and contour. No stones. No hydroureteronephrosis. Urinary bladder is poorly distended. There appears to be wall thickening. GI: Stomach appears unremarkable. Small bowel is not obstructed. Normal appendix curls inferolateral to the cecal apex. Mild colonic diverticulosis without evidence of acute diverticulitis. PERITONEUM: No ascites or free air. RETROPERITONEUM: No mass or adenopathy. REPRODUCTIVE: Moderate to marked prostatomegaly. VASCULATURE: No abdominal aortic aneurysm. Minimal atherosclerotic calcifications. MUSCULOSKELETAL: No acute fracture. No suspicious lytic or sclerotic bone lesion. Mild degenerative disc disease. OTHER: Tiny fat containing paraumbilical hernia, just to the left of midline. IMPRESSION: 1. Bladder wall thickening, which may be on the basis of poor distension and/chronic outlet obstruction. However, clinical correlation to exclude cystitis is recommended. 2. Moderate to marked prostatomegaly. Consider correlation with serum PSA level. 3. Tiny fat containing left paramedian periumbilical hernia. THIS IS AN ELECTRONICALLY VERIFIED FINAL REPORT 10/25/2021 2:34 PM - Electronically signed by Joey Coleman M.D. BC: DAMASO Report ID: [id number] Reading Location: [id number] Procedure Note Joey Coleman MD - 10/25/2021 EXAM DESCRIPTION: CT ABDOMEN PELVIS WO CONTRAST REASON FOR STUDY: RUQ pain/diarrhea Pt c/o RT sided pain that radiates to back x 1 month along with diarrhea.Pt denies fever, N/V or urinary sx. Pt states his abd feels like it gets hard when he pushes on it or it looks swollen and pushes out when he lays down.HX of umbilical hernia TECHNIQUE: CT scan of the abdomen and pelvis performed without intravenousand without oral contrast using helical scanning technique. Reconstructed coronal and sagittal MPR images reviewed. All images stored on PACS. Automated exposure control was used as a dose optimization technique forthis examination. COMPARISON: None available FINDINGS: The sensitivity for detection of visceral lesions is diminished without the use of intravenous contrast. LOWER CHEST: Minor atelectasis or scar at the lung bases. No focal consolidation. No pleural or pericardial effusion. LIVER: Normal size and morphology. No focal liver lesion. GALLBLADDER: Unremarkable. BILE DUCTS: No intrahepatic or extrahepatic biliary dilation. SPLEEN: Normal size. No focal lesions. PANCREAS: Normal parenchymal bulk and contour. No duct dilation or inflammation. ADRENALS: Normal. KIDNEYS/URINARY TRACT: Normal and symmetric renal parenchymal size and contour. No stones. No hydroureteronephrosis. Urinary bladder ispoorly distended. There appears to be wall thickening. GI: Stomach appears unremarkable. Small bowel is not obstructed.Normal appendix curls inferolateral to the cecal apex. Mild colonicdiverticulosis without evidence of acute diverticulitis. PERITONEUM: No ascites or free air. RETROPERITONEUM: No mass or adenopathy. REPRODUCTIVE: Moderate to marked prostatomegaly. VASCULATURE: No abdominal aortic aneurysm. Minimal atherosclerotic calcifications. MUSCULOSKELETAL: No acute fracture. No suspicious lytic or scleroticbone lesion. Mild degenerative disc disease. OTHER: Tiny fat containing paraumbilical hernia, just to the left of midline. IMPRESSION: 1. Bladder wall thickening, which may be on the basis of poor distension and/chronic outlet obstruction. However, clinical correlation to exclude cystitis is recommended. 2. Moderate to marked prostatomegaly. Consider correlation with serumPSA level. 3. Tiny fat containing left paramedian periumbilical hernia. THIS IS AN ELECTRONICALLY VERIFIED FINAL REPORT 10/25/2021 2:34 PM - Electronically signed by Joey Coleman M.D. BC: DAMASO Report ID: [id number] Reading Location: [place] [address] PROCEDURES Final Resul t * eGFR (10/25/2021 11:51 AM CDT) eGFR 100 mL/min/1. 73 m2 ARIS PORTILLO Comment: Interpretive Data Reference Interval Normal >/= 90 mL/min/1.73m2 Mildly decreased* 60 - 89 mL/min/1.73m2 Mildly to moderately decreased 45 - 59 mL/min/1.73m2 Moderately to severely decreased 30 - 44 mL/min/1.73m2 Severely decreased 15 - 29 mL/min/1.73m2 Kidney Failure < 15 mL/min/1.73m2 *Relative to young adult level Estimated glomerular filtration rate is determined by the 2020 CKD-EPI equation recommended by the National Kidney Foundation (A Unifying Approach to GFR Estimation: Recommendations of the NKF-ASK Task Force on Reassessing the Inclusion of Race in Diagnosing Kidney Disease, JASN 202). The CKD-EPI equation should not be used for patients with unstable renal function and has not been validated in children and those over 70. Current interpretive data was last reviewed 2021. Testing performed by: [facility], [address] [place] [address], [place]., [address] Blood 10/25/2021 11:5 1 AM CDT 10/25/2021 12:00 PM CDT us Nandini LORENZO LAB BLOOD ORDERABLES Final Re sult ARIS [address] [facility] Department [place] [address] * PSA diagnostic (01/26/2015 4:40 PM CODE ENFORCEMENT SUPERVISOR) PSA,TOTAL DIAGNOSTIC 2.5 0.0 - 5.4 ng/mL 01/26/2015 5:52 PM CODE ENFORCEMENT SUPERVISOR [facility] HISTORICAL RESULTS Comment: Method: ECLIA Values obtained by different assay methods cannot be used interchangeably. Use sequential testing to confirm baseline if assay method changed during patient monitoring. 01/26/2015 4:40 PM CODE ENFORCEMENT SUPERVISOR 01/26/2015 5:14 PM CODE ENFORCEMENT SUPERVISOR us Trevor Stuatr MD LAB BLOOD ORDERABLES Final Res ult [facility] HISTORICAL RESULTS from Last 3 Months or Most Recently Relevant to Health Maintenance Insurance [facility] Member Subscriber Plan / Payer (Ef fective 2020-Present) Name:Will June Relation to Subscriber:Spouse Name:VIDAJAMES Gomez Date of :1953 (Home) Address: [address] [place] [phone] Payer ID:[id number] ([facility]) Type:[facility] HMO/PPO Address: [facility] [address] [place] [address] [facility] Care Teams Multi Purpose Machine Operator Relationship Specialty Start Date End Date Ignacio Miranda MD [facility] - General 01/25/16
--- OUTSIDE RECORDS SUMMARY | 2024-05-10 18:59 | XMS_ITS | Encounter Summary ---
Author Organization [facility] Address Formerly [facility], [address] [place] [address] Care Team Providers Care Welcome Wagon Hostess Name Role Phone Ignacio Miranda MD Primary Care Provider [phone] Spenser Armendariz MD Unavailable [phone] Encounter Details Date Type Department Care Team (Late st Contact Info) Description 04/10/2020 [facility] Message Enc [facility] Family & Internal Medicine [address] [address] Ignacio Miranda MD [address] [place] [phone] RE: Question Social History Tobacco Use Types Packs/Day Years [...] Sex Assigned at Male 05/07/2018 3:15 PM SALES AND MARKETING SPECIALIST Legal Sex Male 4:31 PM CDT Gender Identity Male 05/07/2018 3:15 PM SALES AND MARKETING SPECIALIST Sexual Orientation Straight 05/07/2018 3: 15 PM SALES AND MARKETING SPECIALIST documented as of this encounter Plan of Treatment Upcoming Encounters Date Type Department Care Team (Late st Contact Info) Description 06/25/2024 10:00 AM CDT Office Visit [facility] [id number] [place] [address] Prasad Santiago MD [address] [facility] [address] [place] [phone] 07/21/2024 10:00 AM CDT Laboratory Only [facility] Family & Internal Medicine - [address] [phone] Ignacio Miranda MD [address] [place] [address] 07/28/2024 10:40 AM CDT Office Visit [facility] Family & Internal [facility] - [address] [address] Ignacio Miranda MD [address] [place] [address] 10/08/2024 10:00 AM CDT Office Visit [facility] Multispecialty Care - [facility] [address] [facility], [address] [place] [address] Boris Brown MD [address] [place] [address] documented as of this encounter Visit Diagnoses Not on filedocumented in this encounter Additional Health Concerns Infection Onset Date Last Indicated Resolved Time COVID-19 Rule Out 05/11/2020 05/11/2020 05/18/2020 12:34 AM SALES AND MARKETING SPECIALIST COVID-19 Rule Out 03/08/2022 03/08/2022 03/08/2022 2:16 PM SALES AND MARKETING SPECIALIST COVID-19 Rule Out 03/13/2022 03/13/2022 03/13/2022 10:48 AM SALES AND MARKETING SPECIALIST COVID-19 Rule Out 03/10/2023 03/10/2023 03/10/2023 12:12 PM SALES AND MARKETING SPECIALIST COVID-19 Rule Out 03/25/2023 03/25/2023 03/25/2023 2:20 PM SALES AND MARKETING SPECIALIST COVID-19 Rule Out 03/25/2023 03/25/2023 03/27/2023 1:28 AM SALES AND MARKETING SPECIALIST documented as of this encounter Care Teams Welcome Wagon Hostess Relationship Specialty Start Date End Date Ignacio Miranda MD [address] [place] [address] PCP - General 10/18/16 Spenser Armendariz MD [address] [place] [address] Consulting Physician UROLOGY 10/05/19 documented as of this encounter
--- OUTSIDE RECORDS SUMMARY | 2024-05-10 18:59 | XMS_ITS | Encounter Summary ---
Author Organization [facility] Address [address] [place] [address] Care Team Providers Care Plumber Apprentice Name Role Phone Ignacio Miranda MD Primary Care Provider [phone] Spenser Armendariz MD Unavailable [phone] Encounter Details Date Type Department Care Team (Latest Contact Info) Description 11/17/2017 Abstract [facility] , Marian Sosa MD Social History Tobacco Use Types Packs/Day Years Used Date Smoking Tobacco: Never Assessed Sex and Gender Information Value Date Recorded Sex Assigned at Male 05/07/2018 3:15 PM FISH AGENT Legal Sex Male 4:31 PM CDT Gender Identity Male 05/07/2018 3:15 PM FISH AGENT Sexual Orientation Straight 05/07/2018 3: 15 PM FISH AGENT documented as of this encounter Plan of Treatment Upcoming Encounters Date Type Department Care Team (Late st Contact Info) Description 06/25/2024 10:00 AM CDT Office Visit [facility] [phone] Prasad Santiago MD [address] [facility] [address] [place] [phone] 07/21/2024 10:00 AM CDT Laboratory Only [facility] Family & Internal Medicine - [address] [phone] Ignacio Miranda MD [address] [place] [address] 07/28/2024 10:40 AM CDT Office Visit [facility] Family & Internal Medicine - [address] [phone] Ignacio Miranda MD [address] [place] [address] 10/08/2024 10:00 AM CDT Office Visit [facility] Multispecialty Care - [facility] [address] [facility], [address] [place] [address] Boris Brown MD [address] [place] [address] documented as of this encounter Visit Diagnoses Not on filedocumented in this encounter Additional Health Concerns Infection Onset Date Last Indicated Resolved Time COVID-19 Rule Out 05/11/2020 05/11/2020 05/18/2020 12:34 AM FISH AGENT COVID-19 Rule Out 03/08/2022 03/08/2022 03/08/2022 2:16 PM FISH AGENT COVID-19 Rule Out 03/13/2022 03/13/2022 03/13/2022 10:48 AM FISH AGENT COVID-19 Rule Out 03/10/2023 03/10/2023 03/10/2023 12:12 PM FISH AGENT COVID-19 Rule Out 03/25/2023 03/25/2023 03/25/2023 2:20 PM FISH AGENT COVID-19 Rule Out 03/25/2023 03/25/2023 03/27/2023 1:28 AM FISH AGENT documented as of this encounter Care Teams Plumber Apprentice Relationship Specialty Start Date End Date Ignacio Miranda MD [address] [place] [address] PCP - General 10/18/16 Spenser Armendariz MD [address] [place] [address] Consulting Physician UROLOGY 10/05/19 documented as of this encounter
--- OUTSIDE RECORDS SUMMARY | 2024-05-10 18:59 | XMS_ITS | Referral Summary ---
Author Organization [facility] Common Sensing Address [address] [place] [address] Care Team Providers Care Through Operator Name Role Phone Ignacio Miranda MD Primary Care Provider [phone] Source Comments [facility],non-owned Affiliates and Associated Physician Practices is amultiple site organization consisting of ambulatory clinics and hospital sitesin [place], [place], [place] and [place]. This disclosure is being madepursuant to the Care Everywhere program and may not contain all information available regarding this patient. Last updated 17.[facility] Common Sensing Allergies Active Allergy Reactions Criticality Noted Date Comments Calamine Rash Medium 12/31/2016 Skin bubbles up Diphenhydramine Rash Medium 12/31/2016 Skin bubbles up Kenaject Rash Medium 12/31/2016 Skin bubbles up Kenalog Rash Medium 12/31/2016 Skin bubbles up Prednisone Rash Medium 12/31/2016 Skin bubbles up Sulfa Drugs Rash Medium 12/31/2016 Skin bubbles up Medications * Be aware that medications may not be up to date on this document. Alwaysverify current medications with the patient. Medication Sig Dispensed Refills Start Date End Date Status aspirin (ASPIRIN) 81 MG tablet Take 1 (one) tablet by mouth DAILY 12/31/2016 Active glimepiride (AMARYL) 4 MG tablet Take 1 (one) tablet by mouth daily with breakfast Active finasteride (PROSCAR) 5 MG tablet 04/20/2020 Active blood glucose test strip Use 1 (one) strip as instructed once daily as needed 09/08/2019 Active lancets Use 1 (one) Each once daily 09/16/2019 Active SOFTCLIX LANCETS MISC 09/08/2019 Active RYBELSUS 14 MG tablet 04/20/2020 Active metFORMIN ER 24hr (GLUCOPHAGE XR) 500 MG tablet TAKE TWO TABLETS BY MOUTH ONCE DAILY WITH BREAKFAST 11/02/2019 Active omeprazole (PRILOSEC) 40 MG capsule 04/20/2020 Active hydrocortisone (HYTONE) 2.5 % creamIndications:Oth er seborrheic dermatitis Apply to red patches on face daily during flares. 30 days supply. 30 g 1 04/24/2020 Active Additional Information Patient not taking.Reported on 11/10/2023 ipratropium (ATROVENT) 0.03 % nasal spray [place] 1-2 sprays into each nostril 15-20 minutes prior to each meal. Use up to 4 times daily as needed. 01/22/2021 Active tamsulosin (FLOMAX) 0.4 MG capsule Take 1 (one) capsule by mouth once daily Active lisinopril (Prinivil; Zestril) 20 MG tablet 01/07/2022 Active pregabalin (Lyrica) 75 MG capsule 05/23/2022 Active econazole nitrate (Spectazole) 1 % creamIndications:Rubi chomycosis Apply to feet 2 times daily for 4 weeks then once a week. 30 days supply. 85 g 2 11/18/2022 Active Additional Information Patient not taking.Reported on 02/03/2023 rosuvastatin (Crestor) 10 MG tablet 12/26/2022 Active sildenafil (Viagra) 100 MG tablet 12/28/2022 Active desonide 0.05 % creamIndications:Dre orrheic Dermatitis Apply to affected area on face daily up to two weeks per month as needed. 30 days supply. Reasons: Seborrheic Dermatitis 30 g 2 01/22/2023 Active ketoconazole (Nizoral) 2 % creamIndications:Oth er seborrheic dermatitis Apply to affected area on the face daily. 30 days supply. 60 g 11 02/03/2023 Active Additional Information Patient not taking.Reported on 11/10/2023 clindamycin 1 % gelIndications:Folli culitis Apply to scalp or upper back red itchy bumps daily until clear. 30 g 5 06/23/2023 Active Additional Information Patient not taking.Reported on 11/10/2023 ketoconazole (Nizoral) 2 % shampooIndications:O ther seborrheic dermatitis Use as wash for your scalp and face, up to daily, lather it on for 3-5 minutes before washing off. 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 Assessment & Plan (04/24/2020 3:50 PM PITCH WORKER): - Benign, reassurance Other seborrheic dermatitis 04/24/2020 Assessment & Plan (07/31/2020 9:01 AM CDT): - Discussed diagnosis, typical course, and treatment options - Start ketoconazole 2% shampoo tiw to scalp and face - Start hydrocortisone 2.5 % ointment to face daily PRN during flares limit use to one wk. SE discussed. Assessment & Plan (04/24/2020 3:51 PM PITCH WORKER): - Discussed diagnosis, typical course, and treatment options - Start ketoconazole 2% shampoo BID to face - Start hydrocortisone 2.5 % ointment to face daily PRN during flares Elevated IOP, bilateral 12/31/2018 Martin cyst, left 08/06/2018 Left knee pain 08/06/2018 Localized osteoarthritis of left knee 08/06/2018 Actinic keratosis 08/04/2018 Assessment & Plan (07/31/2020 9:00 AM CDT): LN2 See procedure note. 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 Overview (04/24/2020): Overview: 2006, R parietal scalp, s/p Mohs 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 compound 01/25/2016 Overview (12/13/2021): 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 Controlled type 2 diabetes mellitus without comp lication 12/24/2015 Chronic GERD 06/17/2012 Vitamin D deficiency 09/19/2011 Immunizations Name Administration Dates Next Due INFLUENZA VACCINE 12/14/2021, 1,01/19/2020,12/31/2018,01/23/20 18 PNEUMOCOCCAL PPSV23 01/19/2020 Pneumococcal Pcv13 Conj 12/31/2018 Social History Tobacco Use Types Packs/Day Years [...] Sign Reading Time Taken Comments Blood Pressure 140/87 12/16/2017 1:14 PM CDT Pulse 70 12/16/2017 1:14 PM CDT Temperature 36.4 C (97.6 F) 04/24/2020 3:31 PM PITCH WORKER Respiratory Rate - - Oxygen Saturation - - Inhaled Oxygen Concentration - - Weight - - Height - - Body Mass Index - - Plan of Treatment Upcoming Encounters Date Type Department Care Team (Late st Contact Info) Description 07/05/2024 9:00 AM CDT Office Visit [facility] - Dermatology [address] [facility] [place] [address] Bismark Ash MD [address] [facility] [address] [place] [address] Care Teams Through Operator Relationship Specialty Start Date End Date Ignacio Miranda MD PCP - General 02/01/08
--- OUTSIDE RECORDS SUMMARY | 2024-05-10 18:59 | XMS_ITS | Clinical Summary ---
Author Organization [facility] Address [facility] [place] [address] Care Team Providers Care Wig Stylist Name Role Phone Ignacio Miranda MD Primary Care Provider [phone] Allergies Active Allergy Reactions Criticality Noted Date [...] mcg (0.03 %) nasal sprayIndicatio ns:Gustatory rhinitis [place] 1-2 sprays into each nostril 15-20 minutes prior to each meal. Use up to 4 times daily as needed. 30 mL 3 01/23/20 21 Active Additional Information Patient not taking.Reported on 08/05/2023 blood glucose diagnostic (glucose blood) strip Check blood sugar 3 times a day using the contour next test strips 300 each 04/23/19 22 Active lancets 33 gauge misc [...] 1 tablet (14 mg total) by mouth fire prevention chief before breakfast 90 tablet 3 08/05/19 24 [...] Noted Date Diagnosed Date No diagnosis on [place] I 01/31/2023 Other chronic pain 01/31/2023 Liver [...] 01/25/2016 Overview (07/04/2016): Chest pain in adult Encounters Date Type Department Care Team Description 04/27/2024 [facility] - Interventional Radiology [address] [place] [phone] Jania Mar, RN 04/26/2024 [facility] - Interventional Radiology [address] [place] [phone] Jania Mar, RN 04/07/2024 [facility] - Interventional Radiology [address] [place] [phone] Jania Mar, RN 04/07/2024 [facility] - Interventional Radiology [address] [place] [phone] Jania Mar, RN 04/07/2024 [facility] - Interventional Radiology [address] [place] [phone] Jania Mar, RN 04/01/2024 [facility] - Interventional Radiology [address] [place] [phone] Jania Mar, RN 04/01/2024 [facility] - Interventional Radiology [address] [place] [phone] Jania Mar RN 03/31/[address] [facility] - Interventional Radiology [address] [place] [address] Jania Mar RN 03/29/2024 Telephone Radiology [address] [place] [address] Effie Hope RN 03/29/2024 Orders Only [facility] Radiology [address] [place] [address] Andie Daugherty RN 03/26/2024 Orders Only Radiology [address] [place] [address] Effie Hope, ADALID Benign prostatic hyperplasia with urinary frequency (Primary Dx) from Last 3 Months Surgical History Surgery Date Site/Laterality Comments HERNIA REPAIR Hernia repair TUMOR REMOVAL 03/24/2007 - 03/23/2008 KNEE SURGERY CYST REMOVAL under arm Medical History Medical History Date Comments Diabetes mellitus (HCC) Diabetes mellitus; Comments: TYW 01/25/2016 - Hx Other Medical Knee surgery; C omments: TYW 01/25/2016 - Hx Other Medical ulnar and media n nerve damage, carpal tunnel, mul; Comments: ELU 01/25/2016 - Meningitis Family History Medical History Relation Name Comments Brain cancer Brother 1 Cancer, brain; Diabetes Brother 2 Diabetes mellit ; Other Father Heart issues; E PEGGY 01/25/2016 -Heart attacks started in his 60's Other Mother Alive and well; Heart disease Other Family history of Cardiovascular disease; Relation Name Status Comments Brother 1 Brother 2 Father Mother Alive Other Social History Tobacco Use Types Packs/Day Years [...] on file Legal Sex Male 4:13 AM MACHINE FORMER Gender Identity Not on file Sexual Orientation Not on file Obstetrics History Last Filed Vital Signs Vital Sign Reading [...] 08/05/2023 2:36 PM CDT Plan of Treatment Health Maintenance Due Date Last Done Comments Albumin Creatinine Ratio, Urine 1955 Colon Cancer Screening-Colonoscopy 1955 Depression Screening 1955 Fall Risk Assessment 1955 Hepatitis C Screening 1955 Dilated Eye Exam 1955 DTaP/Tdap/Td Vaccine (1 - Tdap) 1964 Hepatitis B Screening 08/20/1971 Zoster Vaccine (1 of 2) 08/20/2003 Well Visit 65+ 2018 eGFR 10/25/2022 10/25/2021 Covid-19 Vaccine (4 - 2023-2 5 season) 2023 02/27/2021, 06/28/2020, 05/05/2020 Influenza Vaccine (#1) 2023 2, 01/11/2021, 01/19/2020, Additional history exists Lipid Panel 12/20/2023 12/19/2022, 10/30/2020 Hemoglobin A1C 02/05/2024 08/05/2023, 04/19/2021 Foot Exam 08/04/2024 08/05/2023 Prostate Cancer Screening-PSA Discontinued 01/26/2015 Pneumococcal vaccine 65+ Completed 01/19/2020, 12/22 Abdominal Aortic Aneurysm (A AA) Screen Completed 10/25/2021 Goals Goal Patient Goal Type Associated Problems Recent Progress Patient-Stated? Author CCM Chronic Pain Care Plan Chronic Care Management Worsening( 10:59 AM CDT) No Paras garcia, Leena Salinas, RN Note: Problem: Chronic Pain Goals: 1. Minimize further functional decline 2. Maximize quality of life 3. Control pain Strategies: - Activity/exercise program recommendation - Conservative stepwise pain medicine strategy with multi-disciplinary approach - Recommend healthy lifestyle strategies and compensatory methods as needed Medical Devices Implanted Type Area Glaze Grinder Device Identifier Shelf Expiration Date Model / Serial / Lot Nerve Stimulator Right: Chest Procedures Procedure Name Priority Date/Time Associated Diagnosis Comments POCT HEMOGLOBIN A1C Routine 08/05/2023 2 :36 PM CDT Type 2 diabetes mellitus with hyperglycemia, without long-term current use of insulin ([facility] ([facility]) CT ABDOMEN PELVIS WO CONTRAST ED 10/25/2021 1:50 PM CDT EGFR STAT 10/25/2021 11:51 AM CDT PSA DIAGNOSTIC Routine 01/26/2015 4:40 PM MACHINE FORMER from Last 3 Months or Most Recently Relevant to Health Maintenance Results * (ABNORMAL) POCT hemoglobin A1c (08/05/2023 2:36 PM CDT) Hemoglobin A1C, POC 6.4 % Blood spot 08/05/2023 2:36 PM CDT us Estella Lucero MD POINT OF CARE TEST [...] Joey Coleman M.D. BC: DAMASO Report ID: [id number] Reading Location: [id number] Procedure Note Joey Coleman MD - 10/25/2021 [...] Joey Coleman M.D. BC: DAMASO Report ID: [id number] Reading Location: [id number] us Nandini LORENZO IMG CT PROCEDURES Final Resul [...] of Race in Diagnosing Kidney Disease, JASN 2020). The CKD-EPI equation should not be used for patients with unstable renal function and has not been validated in children and those over 70. Current interpretive data was last reviewed 2021. Testing performed by: [facility], [address] [place] [address], [place]., [address] Blood 10/25/2021 11:5 1 AM CDT 10/25/2021 12:00 PM CDT us Nandini LORENZO LAB BLOOD ORDERABLES Final Re sult [facility] Department [place] [address] * PSA diagnostic (01/26/2015 4:40 PM MACHINE FORMER) PSA,TOTAL DIAGNOSTIC 2.5 0.0 - 5.4 ng/mL 01/26/2015 5:52 PM MACHINE FORMER [facility] HISTORICAL RESULTS Comment: Method: ECLIA Values obtained by different assay methods cannot be used interchangeably. Use sequential testing to confirm baseline if assay method changed during patient monitoring. 01/26/2015 4:40 PM MACHINE FORMER 01/26/2015 5:14 PM MACHINE FORMER us Trevor Stuart MD LAB BLOOD ORDERABLES Final Res ult [facility] HISTORICAL RESULTS from Last 3 Months or Most Recently Relevant to Health Maintenance Insurance [facility] [place] [address] [facility] Member Subscriber Plan / Payer (Ef fective 2020-Present) Name:Will June Relation to Subscriber:Spouse Name:JAMES JUNE Date of :1899 (Home) Address: [address] [place] [address] Payer ID:[id number] (NAIC) Type:[facility] HMO/PPO Address: [place] [phone] [facility] Care Teams Wig Stylist Relationship Specialty Start Date End Date Ignacio Miranda MD PCP - General 01/25/16
--- OUTSIDE RECORDS SUMMARY | 2024-05-10 18:59 | XMS_ITS | Patient Health Summary ---
Author Organization [facility] Address [address] [place] [address] Care Team Providers Care Senior Market Research Analyst Name Role Phone Ignacio Miranda MD Primary Care Provider [phone] Note from [facility],non-owned Affiliates and Associated Physician Practices is amultiple site organization consisting of ambulatory clinics and hospital sitesin [place], [place], [place] and [place]. This disclosure is being madepursuant to the Care Everywhere program and may not contain all information available regarding this patient. Last updated 17.[facility] Allergies * Calamine(Rash) -Medium Criticality * Diphenhydramine(Rash) -Medium Criticality * Kenaject(Rash) -Medium Criticality * Kenalog(Rash) -Medium Criticality * Prednisone(Rash) -Medium Criticality * Sulfa Drugs(Rash) -Medium Criticality * Povidone Iodine(Rash) -Medium Criticality,Inactive Medications * Be aware that medications may not be up to date on this document. Alwaysverify current medications with the patient. * aspirin (ASPIRIN) 81 MG tablet(Started 12/31/2016) Take 1 (one) tablet by mouth DAILY * glimepiride (AMARYL) 4 MG tablet Take 1 (one) tablet by mouth daily with breakfast * finasteride (PROSCAR) 5 MG tablet(Started 04/20/2020) * blood glucose test strip(Started 09/08/2019) Use 1 (one) strip as instructed once daily as needed * lancets(Started 09/16/2019) Use 1 (one) Each once daily * SOFTCLIX LANCETS MISC(Started 09/08/2019) * RYBELSUS 14 MG tablet(Started 04/20/2020) * metFORMIN ER 24hr (GLUCOPHAGE XR) 500 MG tablet(Started 11/02/2019) TAKE TWO TABLETS BY MOUTH ONCE DAILY WITH BREAKFAST * omeprazole (PRILOSEC) 40 MG capsule(Started 04/20/2020) * hydrocortisone (HYTONE) 2.5 % cream(Started 04/24/2020) Apply to red patches on face daily during flares. 30 days supply. 1 refill by 04/24/2021 * ipratropium (ATROVENT) 0.03 % nasal spray(Started 01/22/2021) Deforest 1-2 sprays into each nostril 15-20 minutes prior to each meal. Use up to 4 times daily as needed. * tamsulosin (FLOMAX) 0.4 MG capsule Take 1 (one) capsule by mouth once daily * lisinopril (Prinivil; Zestril) 20 MG tablet(Started 01/07/2022) * pregabalin (Lyrica) 75 MG capsule(Started 05/23/2022) * econazole nitrate (Spectazole) 1 % cream(Started 11/18/2022) Apply to feet 2 times daily for 4 weeks then once a week. 30 days supply. 2 refills by 11/18/2023 * rosuvastatin (Crestor) 10 MG tablet(Started 12/26/2022) * sildenafil (Viagra) 100 MG tablet(Started 12/28/2022) * desonide 0.05 % cream(Started 01/22/2023) Apply to affected area on face daily up to two weeks per month as needed. 30 days supply. Reasons: Seborrheic Dermatitis 2 refills by 01/22/2024 * ketoconazole (Nizoral) 2 % cream(Started 02/03/2023) Apply to affected area on the face daily. 30 days supply. 11 refills by 02/03/2024 * clindamycin 1 % gel(Started 06/23/2023) Apply to scalp or upper back red itchy bumps daily until clear. 5 refills by 06/22/2024 * ketoconazole (Nizoral) 2 % shampoo(Started 06/23/2023) Use as wash for your scalp and face, up to daily, lather it on for 3-5 minutes before washing off. 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 Dyslipidemia 12/19/2021 Presbyopia 12/13/2021 Astigmatism 12/13/2021 Liver mass 11/16/2020 Hypercholesterolemia 11/09/2020 Solar purpura 04/24/2020 Other seborrheic dermatitis 04/24/2020 Elevated IOP, bilateral 12/31/2018 Martin cyst, left 08/06/2018 Left knee pain 08/06/2018 Localized osteoarthritis of left knee 08/06/2018 Actinic keratosis 08/04/2018 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 compound 01/25/2016 Controlled type 2 diabetes mellitus without comp lication 12/24/2015 Chronic GERD 06/17/2012 Vitamin D deficiency 09/19/2011 Immunizations * INFLUENZA VACCINE(Given 12/14/2021, 01/11/2021, 01/19/2020, 12/31/2018, 01/22/2018) * PNEUMOCOCCAL PPSV23(Given 01/19/2020) * Pneumococcal Pcv13 Conj(Given 12/31/2018) Social History Tobacco Use Types Packs/Day Years [...] 36.4 C (97.6 F) 04/24/2020 3:31 PM FRAME SAMPLE AND PATTERN SUPERVISOR Respiratory Rate - - Oxygen Saturation - - Inhaled Oxygen Concentration - - Weight - - Height - - Body Mass Index - - Procedures * PROC DESTRUCTION OF PRE-MALIGNANT LESIONS(Performed 01/05/2024) Performed for Actinic keratosis * NJ DESTRUCT BENIGN LESION, 1-14(Performed 11/10/2023) Performed for Viral warts, unspecified type * NJ TANGNTL BX SKIN SINGLE LES(Performed 11/10/2023) Performed for Neoplasm of uncertain behavior of skin * DERMATOPATHOLOGY(Performed 11/10/2023) Performed for Neoplasm of uncertain behavior of skin * NJ DESTROY PREMALIG LESION, 1ST LESION(Performed 06/23/2023) Performed for Actinic keratosis * NJ DESTROY PREMALIG LESION, 2-14(Performed 06/23/2023) Performed for Actinic keratosis * NJ TANGNTL BX SKIN SINGLE LES(Performed 11/18/2022) Performed for Neoplasm of uncertain behavior of skin * DERMATOPATHOLOGY(Performed 11/18/2022) Performed for Neoplasm of uncertain behavior of skin * NJ TANGNTL BX SKIN SINGLE LES(Performed 06/21/2022) Performed for Neoplasm of uncertain behavior of skin * DERMATOPATHOLOGY(Performed 06/21/2022) Performed for Neoplasm of uncertain behavior of skin * NJ DESTROY PREMALIG LESION, 1ST LESION(Performed 05/20/2022) Performed for Actinic keratosis * NJ DESTROY PREMALIG LESION, 2-14(Performed 05/20/2022) Performed for Actinic keratosis * NJ PHOTODYNAMIC THERAPY(Performed 04/05/2022) Performed for Actinic keratosis * NJ AMINOLEVULINIC ACID HCL TOP(Performed 04/05/2022) Performed for Actinic keratosis * NJ PHOTODYNMIC TX DESTR LES PHYS QHP NJ DAY(Performed 03/01/2022) Performed for Actinic keratosis * NJ AMINOLEVULINIC ACID HCL TOP(Performed 03/01/2022) Performed for Actinic keratosis * NJ PHOTODYNAMIC THERAPY(Performed 01/23/2022) Performed for Actinic keratosis * NJ EXC SKIN MALIG 2.1-3CM TRUNK,ARM,LEG(Performed 12/11/2021) Performed for 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 * NJ INTMD WND REPAIR TRUNK,ARM,LEG 2.6-7.5(Performed 12/11/2021) Performed for 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 * DERMATOPATHOLOGY(Performed 12/11/2021) Performed for 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 * NJ TANGNTL BX SKIN SINGLE LES(Performed 11/12/2021) Performed for Neoplasm of uncertain behavior of skin * NJ TANGNTL BX SKIN EA SEP ADDL(Performed 11/12/2021) Performed for Neoplasm of uncertain behavior of skin * NJ DESTROY PREMALIG LESION, 1ST LESION(Performed 11/12/2021) Performed for Actinic keratosis * NJ DESTROY PREMALIG LESION, 2-14(Performed 11/12/2021) Performed for Actinic keratosis * DERMATOPATHOLOGY(Performed 11/12/2021) Performed for Neoplasm of uncertain behavior of skin * NJ TANGNTL BX SKIN SINGLE LES(Performed 11/20/2020) Performed for Neoplasm of uncertain behavior of skin * DERMATOPATHOLOGY(Performed 11/20/2020) Performed for Neoplasm of uncertain behavior of skin * NJ DESTROY PREMALIG LESION, 1ST LESION(Performed 07/31/2020) Performed for Actinic keratosis * NJ DESTROY PREMALIG LESION, 2-14(Performed 07/31/2020) Performed for Actinic keratosis * NJ DESTROY PREMALIG LESION, 1ST LESION(Performed 08/03/2018) Performed for Actinic keratosis * NJ DESTROY PREMALIG LESION, 2-14(Performed 08/03/2018) Performed for Actinic keratosis * NJ EXC SKIN BENIG 1.1-2CM TRUNK,ARM,LEG(Performed 12/18/2017) Performed for Neoplasm of uncertain behavior of skin * NJ REPR CMPL WND TRUNK 2.6-7.5CM(Performed 12/18/2017) Performed for Neoplasm of uncertain behavior of skin * DERMATOPATHOLOGY(Performed 12/16/2017) Performed for Neoplasm of uncertain behavior of skin * DERMATOPATHOLOGY(Performed 03/11/2017) * DERMATOPATHOLOGY(Performed 04/30/2010) * PATHOLOGY/GENETICS HISTORICAL-ONBASE(Performed 04/30/2010) * PATHOLOGY/GENETICS HISTORICAL-ONBASE(Performed 04/04/2008) * PATHOLOGY/GENETICS HISTORICAL-ONBASE(Performed 02/04/2007) * PATHOLOGY/GENETICS HISTORICAL-ONBASE(Performed 10/22/2006) * PATHOLOGY/GENETICS HISTORICAL-ONBASE(Performed 10/15/2006) * PATHOLOGY/GENETICS HISTORICAL-ONBASE(Performed 09/23/2006) * PATHOLOGY/GENETICS HISTORICAL-ONBASE(Performed 09/23/2006) * PATHOLOGY/GENETICS HISTORICAL-ONBASE(Performed 07/09/2006) Results * PROC DESTRUCTION OF PRE-MALIGNANT LESIONS (01/05/2024 2:06 PM CDT) Bismark Redmond MD - 01/05/2024 2:06 PM CDT Bismark Ash MD 01/05/2024 2:09 PM PROC DESTRUCTION OF PRE-MALIGNANT LESIONS Date/Time: 01/05/2024 2:06 PM Performed by: Bismark Ash MD Authorized by: Bismark Ash MD Consent given by: patient Consent type: verbal Risks discussed with patient: scar formation, skin color change, need for further testing/treatment, pain, blistering and infection. Consent type: verbal Procedure details: Location information Left neck and left cheek Number of standard lesions: 2 Total number of lesions: 2 Destruction method: cryotherapy Cryotherapy cycles: 1 Cryotherapy time per cycle (seconds): 5-7 Complications: none Wound care discussed with patient? yes Bismark Ash MD PROCEDURE/MINOR SURG ICAL ORDERABLES * NJ DESTRUCT BENIGN LESION, 1-14 (11/10/2023 12:06 PM CDT) Bismark Redmond MD - 11/10/2023 12:06 PM CDT Liam Evans MD 11/10/2023 12:06 PM Diagnosis and treatment options discussed. Cryotherapy (Liquid Nitrogen) to 1 lesion(s) for 10 seconds each. Number of cycles: 2. Wound care reviewed. Location: right infraorbital skin Liam Evans MD [facility] Dermatology Resident Bismark Ash MD PROCEDURE/MINOR SURG ICAL ORDERABLES * NJ TANGNTL BX SKIN SINGLE LES (11/10/2023 12:02 PM CDT) Bismark Redmond MD - 11/10/2023 12:02 PM CDT Liam Evans MD 11/10/2023 12:04 PM Risks, benefits and alternatives to shave biopsy were discussed with the patient. Verbal consent was obtained. Location: left posterior neck Skin prep: Alcohol Anesthesia: 1% lidocaine with epinephrine Hemostasis: Aluminum chloride Dressing and wound care discussed. Specimen(s) placed in a patient labeled container and sent to dermatopathology. Patient agrees to phone call for results and message if not available. Liam Evans MD [facility] Dermatology Resident Bismark Ash MD PROCEDURE/MINOR SURG ICAL ORDERABLES * DERMATOPATHOLOGY (11/10/2023 12:00 AM CDT) Only the most recent of9 resultswithin the time period is included. Case Report Dermatopathology Report Case: [id number] Authorizing Provider: Bismark Ash MD Collected: 11/10/2023 12:00 AM Ordering Location: [facility] - Received: 11/11/2023 06:03 AM Dermatology Pathologist: Nadira Fernandez MD Specimen: Skin, left posterior neck 3:58 PM CDT DERMATOPATHOLOGY LABORATORY Final Diagnosis Specimen A. SKIN, left posterior neck: HYPERPLASTIC (HYPERTROPHIC) ACTINIC KERATOSIS, ERODED; EXTENDING TO THE BASE OF THE SPECIMEN, WITH SURROUNDING PRURIGO NODULARIS LIKE CHANGES (L57.0) (see microscopic description and comment) 4 3:58 PM CDT DERMATOPATHOLOGY LABORATORY Clinical History R/O NMSC 4 3:58 PM CDT DERMATOPATHOLOGY LABORATORY Gross Description Specimen A: Received is one formalin filled container labeled with the patient's name and designated left posterior neck. The specimen consists of a shave biopsy measuring 6x4x1,8x4x1 mm. Jar 0. 4 3:58 PM CDT DERMATOPATHOLOGY LABORATORY Microscopic Description Specimen A. SKIN, left posterior neck: There is hyperkeratosis alternating with parakeratosis. The epidermis is focally eroded. There is epidermal hyperplasia with disorderly maturation of keratinocytes with nuclear pleomorphism confined to the lower half of the epidermis. This process extends to the base of the specimen. There is surrounding psoriasiform epidermal hyperplasia, compact hyperkeratosis, and fibrosis of the papillary dermis associated with a superficial perivascular lymphohistiocytic infiltrate. Additional deeper sections were obtained and reviewed. COMMENT: A squamous cell carcinoma cannot be ruled out. 4 3:58 PM CDT DERMATOPATHOLOGY LABORATORY Disclaimer An external and internal positive and negative controls are appropriate for the histochemical, immunohistochemical and immunofluorescence stain(s) in this case (if any), except where stated explicitly. The performance characteristics of the stain(s) cited in this report were developed and its performance characteristic determined by the Dermatopathology Laboratory at [facility], directed by Dr. Anat Mancini. These tests need not be, and therefore are not, approved by the [place] Food and Drug Administration. The tests are used for clinical purposes. Billing Codes Specimen Charges Stain Charges 25058 1 4 3:58 PM CDT DERMATOPATHOLOGY LABORATORY Embedded Images 4 3:58 PM CDT DERMATOPATHOLOGY LABORATORY Pathology/Cytolog y TISSUE SPECIMEN FROM SKIN / Unknown 11/10/2023 11/11/2023 6:03 AM CDT Bismark Ash MD LAB - PATHOLOGY/CYTO LOGY ORDERABLES DERMATOPATHOLOGY LABORATORY [facility] - Department of Dermatology [address], [address] [phone] * NJ DESTROY PREMALIG LESION, 2-14, NJ DESTROY PREMALIG LESION, 1ST LESION (06/23/2023 10:45 AM CDT) Narrative Bismark Ash MD - 06/23/2023 10:45 AM CDT Bismark Ash MD 06/23/2023 11:52 AM Diagnosis and treatment options discussed. Cryotherapy (Liquid Nitrogen) to 5 lesion(s) for 5-7 seconds each. Number of cycles: 1. Wound care reviewed. Location: bilateral helices x3, R dorsal hand x2 Pillo Padilla MD Dermatology PGY-4 Bismark Ash MD PROCEDURE/MINOR SURG ICAL ORDERABLES * NJ TANGNTL BX SKIN SINGLE LES (11/18/2022 9:53 AM CDT) Narrative Bismark Ash MD - 11/18/2022 9:53 AM CDT Ismael Sawyer MD 11/18/2022 9:54 AM Risks, benefits and alternatives to shave biopsy were discussed with the patient. Verbal consent was obtained. Location: A) right anterior forearm B) right lateral forearm Skin prep: Alcohol Anesthesia: 0.25% bupivacaine with epinephrine Hemostasis: Aluminum chloride Dressing and wound care discussed. Specimen(s) placed in a patient labeled container and sent to [facility] Dermatopathology. Patient agrees to phone call for results and message if not available. Ismael Sawyer MD Bismark Ash MD PROCEDURE/MINOR SURG ICAL ORDERABLES * NJ TANGNTL BX SKIN SINGLE LES (06/21/2022 3:02 PM CDT) Bismark Redmond MD - 06/21/2022 3:02 PM CDT Kaveh Quintanilla MD 06/21/2022 3:48 PM Risks, benefits and alternatives to shave biopsy were discussed with the patient. Verbal consent obtained. Location: L forearm Skin prep: Alcohol Anesthesia: 1% lidocaine with epinephrine Hemostasis: Hyfrecator Dressing and wound care discussed. Patient agrees to phone call for results and message if not available. Kaveh Qunitanilla MD [facility] Dermatology Resident, PGY-2 Bismark Ash MD PROCEDURE/MINOR SURG ICAL ORDERABLES * NJ DESTROY PREMALIG LESION, 2-14, NJ DESTROY PREMALIG LESION, 1ST LESION (05/20/2022 8:50 AM FRAME SAMPLE AND PATTERN SUPERVISOR) Bismark Redmond MD - 05/20/2022 8:50 AM FRAME SAMPLE AND PATTERN SUPERVISOR Natalia Olsen MD 05/20/2022 8:50 AM Diagnosis and treatment options discussed, addressing the benefit and risks of each. Pt wish to proceed with cryotherapy. Liquid Nitrogen was applied to 3 lesions on (R forearm) for 7-10s each. Number of cycles: 1. Wound care reviewed. Natalia Olsen MD,MPH [facility] Dermatology Resident, PGY-4 Bismark Ash MD PROCEDURE/MINOR SURG ICAL ORDERABLES * NJ AMINOLEVULINIC ACID HCL TOP, NJ PHOTODYNAMIC THERAPY (04/05/2022 12:45 PM FRAME SAMPLE AND PATTERN SUPERVISOR) Anu Jaramillo - 04/05/2022 12:45 PM FRAME SAMPLE AND PATTERN SUPERVISOR Anu Crenshaw 04/05/2022 12:58 PM Procedure: Photodynamic Therapy Will June a 66 year old male presents for photodynamic therapy of the bilateral dorsal hands & forearms. Allergies: Allergies Allergen Reactions Diphenhydramine Rash Skin bubbles up Prednisone Rash Skin bubbles up Sulfa Drugs Rash Skin bubbles up Calamine Rash Skin bubbles up Kenaject Rash Skin bubbles up Kenalog Rash Skin bubbles up Current Meds: Current Outpatient Medications Medication Sig Dispense Refill aspirin (ASPIRIN) 81 MG tablet Take 1 (one) tablet by mouth DAILY blood glucose test strip Use 1 (one) strip as instructed once daily as needed desonide 0.05 % cream Apply daily up to two weeks per month as needed. 30 days supply. 60 g 2 econazole nitrate (Spectazole) 1 % cream Apply to feet 2 times daily for 4 weeks then once a week. 30 days supply. (Patient taking differently: Apply to feet 2 times daily for 4 weeks then once a week. 30 days supply.) 85 g 2 finasteride (PROSCAR) 5 MG tablet glimepiride (AMARYL) 4 MG tablet Take 1 (one) tablet by mouth daily with breakfast hydrocortisone (HYTONE) 2.5 % cream Apply to red patches on face daily during flares. 30 days supply. 30 g 1 ipratropium (ATROVENT) 0.03 % nasal spray Deforest 1-2 sprays into each nostril 15-20 minutes prior to each meal. Use up to 4 times daily as needed. ketoconazole (Nizoral) 2 % shampoo Use as wash for your scalp and face, up to daily, lather it on for 3-5 minutes before washing off. 30 DS 240 mL 11 lancets Use 1 (one) Each once daily lisinopril (Prinivil; Zestril) 20 MG tablet metFORMIN ER 24hr (GLUCOPHAGE XR) 500 MG tablet TAKE TWO TABLETS BY MOUTH ONCE DAILY WITH BREAKFAST omeprazole (PRILOSEC) 40 MG capsule rosuvastatin (Crestor) 10 MG tablet Take 1 (one) tablet by mouth once daily 30 tablet 11 RYBELSUS 14 MG tablet sildenafil (VIAGRA) 50 MG tablet SOFTCLIX LANCETS MISC tamsulosin (FLOMAX) 0.4 MG capsule Take 1 (one) capsule by mouth once daily vitamin D3 (CHOLECALCIFEROL) 125 MCG (5000 UT) capsule Take 1 (one) capsule by mouth once daily No current facility-administered medications for this visit. Patient reports HSV Diagnosis: actinic keratosis Rondon skin type: II Golgau's Photoaging Group: III Sebaceous Degree: normal Current Skin Care: none, last used N/A. Current cleanser: gentle cleanser. Dove bar & liquid Current moisturizer: has recently started using CeraVe Sunscreen: Yes - variety Frequency: irregularly Treatment #3 Reaction: redness and peeling Results: good PROCEDURE Encounter Diagnosis Name Primary? Actinic keratosis Yes Patient degreased with alcohol using gauze and acetone using gauze. Area of treatment: forearms and hands Patient consent: Yes Patient photos: Yes Pretreatment: none Patient has new puppy that bites his arms. He has many abrasions from the bites, so we avoided applying chemical to those open areas. Time Levulan applied: 9:25 am by Edelmira Crenshaw MA Number of sticks Levulan applied: 1 stick Lot # [id number] Exp: 06/[address] [facility] [id number] Heating pads at medium setting applied at 9:30 am Patient placed under light: 11:00 am Duration of light: 16 min. 40 secs. Occlusion: Yes Script written for . Sommer: No Samples given: CeraVe, Aquaphor and Eucerin sunscreen + erythema Biafine applied prior to applying Elta sunscreen. Instructed patient to call with any questions or concerns. Advised patient to avoid any more bites from new puppy to avoid skin infection. Patient did tolerate the treatment well. Anu Crenshaw Madison Ernst DO PROCEDURE/MINOR SURG ICAL ORDERABLES * NJ AMINOLEVULINIC ACID HCL TOP, NJ PHOTODYNMIC TX DESTR LES PHYS QHP NJ DAY (03/01/2022 4:58 PM FRAME SAMPLE AND PATTERN SUPERVISOR) Narrative Anu Crenshaw - 03/01/2022 4:58 PM FRAME SAMPLE AND PATTERN SUPERVISOR Anu Crenshaw 03/01/2022 5:06 PM Procedure: Photodynamic Therapy Will June a 66 year old male presents for photodynamic therapy of the bilateral dorsal hands & forearms. Allergies: Allergies Allergen Reactions Diphenhydramine Rash Skin bubbles up Prednisone Rash Skin bubbles up Sulfa Drugs Rash Skin bubbles up Calamine Rash Skin bubbles up Kenaject Rash Skin bubbles up Kenalog Rash Skin bubbles up Current Meds: Current Outpatient Medications Medication Sig Dispense Refill aspirin (ASPIRIN) 81 MG tablet Take 81 mg by mouth DAILY. blood glucose test strip Use 1 strip as instructed once daily as needed desonide 0.05 % cream Apply daily up to two weeks per month as needed. 30 days supply. 60 g 2 econazole nitrate (Spectazole) 1 % cream Apply to feet 2 times daily for 4 weeks then once a week. 30 days supply. (Patient taking differently: Apply to feet 2 times daily for 4 weeks then once a week. 30 days supply.) 85 g 2 finasteride (PROSCAR) 5 MG tablet glimepiride (AMARYL) 4 MG tablet Take 4 mg by mouth daily with breakfast hydrocortisone (HYTONE) 2.5 % cream Apply to red patches on face daily during flares. 30 days supply. 30 g 1 ipratropium (ATROVENT) 0.03 % nasal spray Deforest 1-2 sprays into each nostril 15-20 minutes prior to each meal. Use up to 4 times daily as needed. ketoconazole (Nizoral) 2 % shampoo Use as wash for your scalp and face, up to daily, lather it on for 3-5 minutes before washing off. 30 DS 240 mL 11 lancets Use 1 device once daily lisinopril (Prinivil; Zestril) 20 MG tablet metFORMIN ER 24hr (GLUCOPHAGE XR) 500 MG tablet TAKE TWO TABLETS BY MOUTH ONCE DAILY WITH BREAKFAST omeprazole (PRILOSEC) 40 MG capsule rosuvastatin (Crestor) 10 MG tablet Take 1 (one) tablet by mouth once daily 30 tablet 11 RYBELSUS 14 MG tablet sildenafil (VIAGRA) 50 MG tablet SOFTCLIX LANCETS MISC tamsulosin (FLOMAX) 0.4 MG capsule Take 0.4 mg by mouth once daily vitamin D3 (CHOLECALCIFEROL) 125 MCG (5000 UT) capsule Take 1 capsule by mouth once daily No current facility-administered medications for this visit. 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 Current cleanser: gentle cleanser. Dove bar & liquid Current moisturizer: none, has started using Cerve Sunscreen: No Frequency: irregularly Treatment #2 Reaction: redness and peeling Results: good PROCEDURE Encounter Diagnosis Name Primary? Actinic keratosis Yes Patient degreased with alcohol using gauze and acetone using gauze. Area of treatment: forearms and hands Patient consent: Yes Patient photos: Yes Pretreatment: none Time Levulan applied: 1:56 pm by ARSENIO Gorman Number of sticks Levulan applied: 1 stick Lot # [id number] Exp: 06/[address] [facility] [phone] Heating pads at medium setting applied at 2:00 pm Patient placed under light: 3:00 pm Duration of light: 16 min. 40 secs. Occlusion: Yes Script written for . Sommer: No Samples given: CeraVe, Aquaphor and Eucerin Mineral sunscreen & Dermend coupons Post treatment: Gentle cleanser, SPF 45, written and verbal post treatment instructions given. + erythema Patient instructed to call with any questions or concerns Patient did tolerate the treatment well. Anu Crenshaw Sharon CESAR PROCEDURE/DEBRA [place] SURGICAL ORDERABLES * PROC PHOTODYNAMIC THERAPY (01/23/2022 4:51 PM CDT) Narrative Anu Crenshaw - 01/23/2022 4:51 PM CDT Anu Crenshaw 01/24/2022 1:17 PM Procedure: Photodynamic Therapy Will June a 66 year old male presents for photodynamic therapy of the bilateral dorsal hands & forearms. Allergies: Allergies Allergen Reactions Diphenhydramine Rash Skin bubbles up Prednisone Rash Skin bubbles up Sulfa Drugs Rash Skin bubbles up Calamine Rash Skin bubbles up Kenaject Rash Skin bubbles up Kenalog Rash Skin bubbles up Current Meds: Current Outpatient Medications Medication Sig Dispense Refill aspirin (ASPIRIN) 81 MG tablet Take 81 mg by mouth DAILY. blood glucose test strip Use 1 strip as instructed once daily as needed desonide 0.05 % cream Apply daily up to two weeks per month as needed. 30 days supply. 60 g 2 doxycycline hyclate (Vibramycin) 100 MG tablet Take 1 (one) tablet by mouth 2 times daily for 14 days Reasons: Common Acne 28 tablet 0 econazole nitrate (Spectazole) 1 % cream Apply to feet 2 times daily for 4 weeks then once a week. 30 days supply. (Patient taking differently: Apply to feet 2 times daily for 4 weeks then once a week. 30 days supply.) 85 g 2 finasteride (PROSCAR) 5 MG tablet glimepiride (AMARYL) 4 MG tablet Take 4 mg by mouth daily with breakfast hydrocortisone (HYTONE) 2.5 % cream Apply to red patches on face daily during flares. 30 days supply. 30 g 1 ipratropium (ATROVENT) 0.03 % nasal spray [place]orest 1-2 sprays into each nostril 15-20 minutes prior to each meal. Use up to 4 times daily as needed. ketoconazole (Nizoral) 2 % shampoo Use as wash for your scalp and face, up to daily, lather it on for 3-5 minutes before washing off. 30 DS 240 mL 11 lancets Use 1 device once daily metFORMIN ER 24hr (GLUCOPHAGE XR) 500 MG tablet TAKE TWO TABLETS BY MOUTH ONCE DAILY WITH BREAKFAST omeprazole (PRILOSEC) 40 MG capsule RYBELSUS 14 MG tablet sildenafil (VIAGRA) 50 MG tablet SOFTCLIX LANCETS MISC tamsulosin (FLOMAX) 0.4 MG capsule Take 0.4 mg by mouth once daily vitamin D3 (CHOLECALCIFEROL) 125 MCG (5000 UT) capsule Take 1 capsule by mouth once daily No current facility-administered medications for this visit. 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 Current cleanser: gentle cleanser. Dove bar & liquid Current moisturizer: none Sunscreen: No Frequency: Does not use Treatment #1 Reaction: N/A Results: N/A PROCEDURE Encounter Diagnosis Name Primary? Actinic keratosis Yes Patient degreased with alcohol using gauze and acetone using gauze. Area of treatment: Bilateral dorsal hands & forearms Patient consent: Yes Patient photos: Yes Pretreatment: none Time Levulan applied: 1:29 pm by Edelmira Crenshaw MA Number of sticks Levulan applied: 1 stick Lot # [id number] Exp: 04/[address] [facility] [id number] Heating pads at medium setting applied @ 1:30 pm Patient placed under light: 2:30 pm Duration of light: 16 min. 40 secs. Occlusion: Yes Script written for . Sommer: No Samples given: CeraVe and Aquaphor Post treatment: Gentle cleanser, SPF 45, written and verbal post treatment instructions given. + erythema Patient instructed to call with progress report in 7-10 days Patient did tolerate the treatment well. Anu Chantell Crenshaw Rina Centeno MD PROCEDURE/MINOR SURG ICAL ORDERABLES * NJ INTMD WND REPAIR TRUNK,ARM,LEG 2.6-7.5, NJ EXC SKIN MALIG 2.1-3CM TRUNK,ARM,LEG (12/11/2021 11:23 PM CDT) Narrative Bismark Ash MD - 12/11/2021 11:23 PM CDT Bismark Ash MD 12/11/2021 11:26 PM PROCEDURE: Excision with INTERMEDIATE repair. SURGEON: Mihir DRESS CUTTER SURGEON: PRE-OP DIAGNOSIS: KA and SCCIS. Accession #: [id number] POST-OP DIAGNOSIS: same LOCATION: L forearm inferior CONSENT: The risks and benefits including alternative treatments were explained to the patient. Signature indicating informed consent was obtained. PROCEDURE: The area was prepped with hibiclens. Then 9 ML of 0.5% bupivacaine with epinephrine. was injected. The size of the lesion was 1.5 cm. The planned margin of 0.4 cm resulted in an excised diameter of 2.5cm. Excision was carriedout to the level of fat with a #15 surgical blade. In order to allow tissue movement and optimal scar contraction, the surrounding skin was undermined widely in the level of fat. Hemostasis was achieved with electrodessication. The deep layer consisting of fat (superficial fascia) was closed with buried 4-0 vicryl sutures. Then the epidermis was meticulously approximated with simple interrupted, simple running and horizontal mattress using 4-0 prolene sutures. A pressure dressingwas applied and wound care instructions were discussed verbally and provided in writing. EBL: less than 5 ml COMPLICATIONS: none FINAL WOUND LENGTH: 5 cm Bismark Ash MD Bismark Ash MD PROCEDURE/MINOR SURG ICAL ORDERABLES * NJ TANGNTL BX SKIN EA SEP ADDL, NJ TANGNTL BX SKIN SINGLE LES (11/12/2021 9:44 AM CDT) Narrative Bismark Ash MD - 11/12/2021 9:44 AM CDT Carolina Johnson MD 11/12/2021 9:44 AM Risks, benefits and alternatives to shave biopsy were discussed with the patient. Verbal consent obtained. Location: A) left forearm superior B) left forearm inferior Skin prep: Alcohol Anesthesia: 1% lidocaine with epinephrine Hemostasis: Aluminum Chloride Dressing and wound care discussed. Patient agrees to phone call for results and message if not available. Carolina Johnson MD [facility] Dermatology Resident, PGY-2 Bismark Ash MD PROCEDURE/MINOR SURG ICAL ORDERABLES * NJ DESTROY PREMALIG LESION, 2-14, NJ DESTROY PREMALIG LESION, 1ST LESION (11/12/2021 9:35 AM CDT) Bismark Redmond MD - 11/12/2021 9:35 AM CDT Carolina Johnson MD 11/12/2021 9:35 AM Diagnosis and treatment options discussed. Cryotherapy (Liquid Nitrogen) to 3 lesions (right hand x2, left hand x1) for 4-6 seconds each. Number of cycles: 1. Wound care reviewed. Carolina Johnson MD [facility] Dermatology Resident, PGY2 Bismark Ash MD PROCEDURE/MINOR SURG ICAL ORDERABLES * NJ TANGNTL BX SKIN SINGLE LES (11/20/2020 2:06 PM CDT) Bismark Redmond MD - 11/20/2020 2:06 PM CDT Madison Ernst DO 11/20/2020 2:06 PM Risks, benefits and alternatives to shave biopsy were discussed with the patient. Verbal consent was obtained. Encounter Diagnoses Name Primary? Other seborrheic dermatitis Neoplasm of uncertain behavior of skin Yes Location: L forearm Skin prep: Alcohol Anesthesia: 1% lidocaine with epinephrine Hemostasis: Aluminum chloride Dressing and wound care discussed. Specimen(s) placed in a patient labeled container and sent to [facility] Dermatopathology. Patient agrees to phone call for results and message if not available. Madison Ernst DO Bismark Ash MD PROCEDURE/MINOR SURG ICAL ORDERABLES * NJ DESTROY PREMALIG LESION, 2-14, NJ DESTROY PREMALIG LESION, 1ST LESION (07/31/2020 8:57 AM CDT) Bismark Redmond MD - 07/31/2020 8:57 AM CDT Bismark Ash MD 07/31/2020 8:57 AM Diagnosis and treatment options discussed. Cryotherapy (Liquid Nitrogen) to 7 lesion(s) on ear and hands for 5-7 seconds each. Number of cycles: 1. Wound care reviewed. Bismark Ash MD PROCEDURE/MINOR SURG ICAL ORDERABLES * NJ DESTROY PREMALIG LESION, 2-14, NJ DESTROY PREMALIG LESION, 1ST LESION (08/03/2018 9:08 AM CDT) Bismark Redmond MD - 08/03/2018 9:08 AM CDT Jase Isbell MD 07/31/2018 5:03 PM Diagnosis and treatment options discussed, addressing the benefit and risks of each. Pt wish to proceed with cryotherapy. Liquid Nitrogen was applied to 5 lesions (1 on vertex scalp, 2 on L dorsal hand, 1 on R dorsal hand, 1 on R dorsal forearms) for 5-7s each x 1 cycle. Wound care reviewed. Bismark Ash MD PROCEDURE/MINOR SURG ICAL ORDERABLES * NJ REPR CMPL WND TRUNK 2.6-7.5CM, NJ EXC SKIN BENIG 1.1-2CM TRUNK,ARM,LEG (12/18/2017 11:28 AM CDT) Bismark Redmond MD - 12/18/2017 11:28 AM CDT Bismark Ash MD 12/18/2017 11:28 AM Cyst Excision with complex Closure Primary Surgeon: Bismark Ash MD Child Care Supervisor Surgeon: Bert Kruse MD Pre-operative diagnosis: Suspected Epidermoid/Pilar Cyst Location: Central chest Derm-Path Accession #: N/[id number] (no previous biopsy) Pre-operative size: 1.1 cm CONSENT: Risks, benefits and alternatives to excision were discussed with the patient. Pt understands the possibility for the following: Bleeding, discomfort, infection, scar (100% chance), and the potential need for further testingor treatment, including surgical. Patient expressed understanding and written consent was obtained. After informed consent, confirmation of site and patient identity was performed and the patient underwent the procedure as follows: PROCEDURE: With the patient in a supine position, an ellipse was outlined over the palpated cyst. Anesthesia was obtained with 9 cc of lidocaine 1% with epinephrine. The cyst and surrounding skin area was prepped with Hibiclens and draped in a sterile fashion. Using a #15 surgical blade, an incision was made along pre-marked lines over the cyst and carried out to the level of the cyst capsule. Careful dissection with a #15 blade used to release the cyst from surrounding tissue. The cyst was from the underlying tissue with scissors. The cyst and scar tissue around it was then placed into a labeled specimen container to be sent to dermatopathology for final diagnosis. Hemostasis was obtained with monopolar electrodessication. The wound edge was widely undermined. The dermis and subcutaneous tissue were closed with deep dermal sutures. Epidermal approximation was meticulously refined using horizontal mattress and simple interrupted sutures resulting in a linear closure with little to no wound tension. The area was covered with petroleum jelly and a non-adherent pressure dressing. Patient tolerated procedure well. Post-operative instructions were reviewed with the patient verbally and in writing. The patient left the operative suite in stable condition and will return to clinic for a nursing visit in 10-14 days for suture removal. Final Wound Length: 2.9 cm Sutures Used: 3-0 monocryl, 4-0 prolene Estimated blood loss: < 5cc Complications: none The attending physician, Dr. Ash, was present for de oliveira portions of the procedure and always immediately available. Bert Kruse MD [facility] Dermatology Resident, PGY-3 Bismark Ash MD Bismark Ash MD PROCEDURE/MINOR SURG ICAL ORDERABLES * PATHOLOGY/GENETICS HISTORICAL-ONBASE (04/30/2010) Only the most recent of8 resultswithin the time period is included. 04/30/2010 Narrative [facility] - 02/07/2012 3:25 PM FRAME SAMPLE AND PATTERN SUPERVISOR Historical Provider LAB - CHEMISTRY O RDERABLES [facility] [address] [place] [address], [facility] Care Teams Senior Market Research Analyst Relationship Specialty Start Date End Date Ignacio Miranda MD PCP - General 02/01/08
--- OUTSIDE RECORDS SUMMARY | 2024-05-10 18:59 | XMS_ITS | Encounter Summary ---
Author Organization [facility] Address [address] [place] [address] Care Team Providers Care Continuous Miner Operator Helper Name Role Phone Ignacio Miranda MD Primary Care Provider [phone] Spenser Armendariz MD Unavailable [phone] Encounter Details Date Type Department Care Team (Late st Contact Info) Description 03/28/2023 APPEK Mobile Appst Message Enc [facility] Medical Group Family & Internal Medicine [id number] [place] [phone] Ignacio Miranda MD [address] [place] [address] Stephanie LORENZO Social History Tobacco Use Types Packs/Day Years [...] Sex Assigned at Male 05/07/2018 3:15 PM DENTAL PATIENT COORDINATOR Legal Sex Male 4:31 PM CDT Gender Identity Male 05/07/2018 3:15 PM DENTAL PATIENT COORDINATOR Sexual Orientation Straight 05/07/2018 3: 15 PM DENTAL PATIENT COORDINATOR documented as of this encounter Functional Status [...] Date Author Status No 03/10/2023 3:04 PM Odliia Galloway RN Active documented in this encounter Progress Notes * Nya Ha MA - 03/28/2023 11:00 AM CSTFrom: Will June To: Dr. Ignacio Miranda Sent: 03/28/2023 9:24 AM DENTAL PATIENT COORDINATOR Subject: Stephanie Gooden. The insurance is denying the Stephanie as it needs the annual prior authorization. Can someone contact them to get the approval? Thanks! AL PATIENT COORDINATOR documented in this encounter Plan of Treatment Upcoming Encounters Date Type Department Care Team (Late st Contact Info) Description 06/25/2024 10:00 AM CDT Office Visit [facility] [address] Prasad Santiago MD [address] [place] [address] [address] [place] [address] 07/21/2024 10:00 AM CDT Laboratory Only [facility] Family & Internal Medicine - [address] [address] Ignacio Miranda MD [address] [place] [address] 07/28/2024 10:40 AM CDT Office Visit [facility] Family & Internal [address] [address] Ignacio Miranda MD [address] [place] [address] 10/08/2024 10:00 AM CDT Office Visit [facility] Multispecialty [facility] [address] [facility], [address] [place] [address] Boris Brown MD [address] [place] [address] documented as of this encounter Goals Goal Patient Goal Type Associated Problems Recent Progress Patient-Stated? Author Health - patient able to perform ADLs independently Lifestyle No Michael Amato RN documented as of this encounter Visit Diagnoses Not on filedocumented in this encounter Additional Health Concerns Assessment Noted Time PHQ-9 Depression Total Score: 0 06/21/19 22 12:50 PM CDT documented as of this encounter Care Teams Continuous Miner Operator Helper Relationship Specialty Start Date End Date Ignacio Miranda MD [address] [place], [place] [id number] PCP - General 10/18/16 Spenser Armendariz MD [address] [place] [address] Consulting Physician UROLOGY 10/05/19 documented as of this encounter
--- OUTSIDE RECORDS SUMMARY | 2024-05-10 18:59 | XMS_ITS | Encounter Summary ---
Author Organization Door [facility] Address [address] [place] [address] Care Team Providers Care Invoice Coder Name Role Phone Unavailable Primary Care Provider Unavailabl e Encounter Details Date Type Department Care Team (Latest Contact Info) Description 07/28/2006 Outpatient Historical [place] [address] [address] [place] [address] [place] [address] Pain in Soft Tissues of Limb (Primary Dx) Social History Tobacco Use Types Packs/Day Years Used Date Smoking Tobacco: Never Assessed Sex and Gender Information Value Date Recorded Sex Assigned at Not on file Legal Sex Male 4:29 AM DEPUTY REGISTER OF DEEDS Gender Identity Not on file Sexual Orientation Not on file documented as of this encounter Plan of Treatment Not on file documented as of this encounter Visit Diagnoses Diagnosis Pain in limb- Primary documented in this encounter
--- OUTSIDE RECORDS SUMMARY | 2024-05-10 18:59 | XMS_ITS | Encounter Summary ---
Author Organization [facility] Address [facility] [place] [address] Care Team Providers Care Fence Installer Foreman Name Role Phone Ignacio Miranda MD Primary Care Provider [phone] Spenser Armendariz MD Unavailable [phone] Encounter Details Date Type Department Care Team (Late st Contact Info) Description 10/21/2022 WatchGuardt Message Enc [facility] Medical Group Family & Internal Medicine [address] [place] [address] Ignacio Miranda MD [address] [place] [address] Additional rib referral Social History Tobacco Use Types Packs/Day Years [...] Sex Assigned at Male 05/07/2018 3:15 PM PAYROLL SERVICES ANALYST Legal Sex Male 4:31 PM CDT Gender Identity Male 05/07/2018 3:15 PM PAYROLL SERVICES ANALYST Sexual Orientation Straight 05/07/2018 3: 15 PM PAYROLL SERVICES ANALYST documented as of this encounter Progress Notes * Ignacio Miranda MD - 10/24/2022 2:24 PM CDT Okay for referral. * Nya Ha MA - 10/24/2022 9:13 AM CDT Okay to refer, this provider is general surgeon documented in this encounter Plan of Treatment Upcoming Encounters Date Type Department Care Team (Late st Contact Info) Description 06/25/2024 10:00 AM CDT Office Visit [facility] [address] Prasad Santiago MD [address] [facility] [address] [place] [phone] 07/21/2024 10:00 AM CDT Laboratory Only [facility] Family & Internal Medicine - [address] [address] Ignacio Miranda MD [address] [place] [address] 07/28/2024 10:40 AM CDT Office Visit [facility] Family & Internal [facility] - [address] [address] Ignacio Miranda MD [address] [place] [address] 10/08/2024 10:00 AM CDT Office Visit [facility] Multispecialty Care - [facility] [address] [facility], [address] [place] [address] Boris Brown MD [address] [place] [address] documented as of this encounter Visit Diagnoses Not on filedocumented in this encounter Additional Health Concerns Infection Onset Date Last Indicated Resolved Time COVID-19 Rule Out 03/10/2023 03/10/2023 03/10/2023 12:12 PM PAYROLL SERVICES ANALYST COVID-19 Rule Out 03/25/2023 03/25/2023 03/25/2023 2:20 PM PAYROLL SERVICES ANALYST COVID-19 Rule Out 03/25/2023 03/25/2023 03/27/2023 1:28 AM PAYROLL SERVICES ANALYST Assessment Noted Time PHQ-9 Depression Total Score: 0 06/21/19 12:50 PM CDT documented as of this encounter Care Teams Fence Installer Foreman Relationship Specialty Start Date End Date Ignacio Miranda MD [address] [place] [address] PCP - General 10/18/16 Spenser Armendariz MD [address] [place] [address] Consulting Physician UROLOGY 10/05/19 documented as of this encounter
--- OUTSIDE RECORDS SUMMARY | 2024-05-10 18:59 | XMS_ITS | Encounter Summary ---
Author Organization [facility] Address [address] [place] [address] Care Team Providers Care Lacquer Mixer Name Role Phone Unavailable Primary Care Provider Unavailabl e Encounter Details Date Type Department Care Team (Latest Contact Info) Description 05/25/2007 Outpatient Historical [facility] [place], [place] [address] [place] [address] Brachial Plexus Lesions Social History Tobacco Use Types Packs/Day Years Used Date Smoking Tobacco: Never Assessed Sex and Gender Information Value Date Recorded Sex Assigned at Not on file Legal Sex Male 4:29 AM SOLE LAYER HAND Gender Identity Not on file Sexual Orientation Not on file documented as of this encounter Plan of Treatment Not on file documented as of this encounter Procedures Procedure Name Priority Date/Time Associated Diagnosis Comments XR HUMERUS 2+ VW RIGHT Routine 05/25/2007 1:24 PM SOLE LAYER HAND XR CHEST PA OR AP 1 VW Routine 05/25/2007 1:24 PM SOLE LAYER HAND documented in this encounter Results * XR CHEST PA OR AP (05/25/2007 1:24 PM SOLE LAYER HAND) Anatomical Region Laterality Modality Chest Other 05/25/2007 1:24 PM SOLE LAYER HAND Narrative 05/26/2007 8:02 AM SOLE LAYER HAND [facility] [address] [place], [place] [address] Admit Date: 05/25/2007 WILL JUNE Sex: M Admit Prov: CESIA ARTEAGA Date: 1955 Primary Care Prov: CESIA ARTEAGA CMRN: [id number] [facility]: [id number] IMAGING SERVICES Ordering Prov: N/A Accession Number: [id number] Interpretation Exam: PA chest 05/25/2007 Indication: Stimulator placement Findings: Stimulator pack is projecting over the right chest with a single wire extending down the right arm. There is no pneumothorax or focal infiltrate in the lungs. Heart size and mediastinum are normal. . Dictated by: REUBEN GUPTA 05/25/2007 15:19 Electronically signed by: REUBEN GUPTA 05/26/2007 08:02 Transcribed: 05/25/2007 21:33 AMK Procedure Note Reuben Gupta - 05/26/[address] [address] Admit Date: 05/25/2007 WILL JUNE Sex: M Admit Prov: CESIA ARTEAGA Date: 1955 Primary Care Prov: CESIA ARTEAGA CMRN: [id number] Room: [facility] SSN: [id number] IMAGING SERVICES Ordering Prov: N/A Interpretation Exam: PA chest 05/25/2007 Indication: Stimulator placement Findings: Stimulator pack is projecting over the right chest with a singlewire extending down the right arm. There is no pneumothorax or focalinfiltrate in the lungs. Heart size and mediastinum are normal. . Dictated by: REUBEN GUPTA 05/25/2007 15:19 Electronically signed by: REUBEN GUPTA 05/26/2007 08:02 Transcribed: 05/25/2007 21:33 AMK us Cesia Arteaga MD DIAGNOSTIC IMAGING ORDERABLES Final Result * XR HUMERUS 2+ VW RIGHT (05/25/2007 1:24 PM SOLE LAYER HAND) Anatomical Region Laterality Modality Upper Extremity Other 05/25/2007 1:24 PM SOLE LAYER HAND Narrative 05/26/2007 8:01 AM SOLE LAYER HAND [address] [address] Admit Date: 05/25/2007 WILL JUNE Sex: M Admit Prov: CESIA ARTEAGA Date: 1955 Primary Care Prov[facility]A [id number] [place] SSN: [id number] IMAGING SERVICES Ordering Prov: N/A Accession Number: [id number] Interpretation EXAM: RIGHT HUMERUS 2 VIEWS 05/25/2007 Indication: Arm pain. Check stimulator placement. Findings: A wire extends from the shoulder into the soft tissues of the inner arm ending in the region of the inner biceps muscle. Bony structures appear normal. . Dictated by: REUBEN GUPTA 05/25/2007 15:16 Electronically signed by: REUBEN GUPTA 05/26/2007 08:01 Transcribed: 05/25/2007 19:10 SJ Procedure Note Reuben Gupta - 05/26/2007 [id number] [facility] [address] [place], [place] [address] Admit Date: 05/25/2007 WILL JUNE Sex: M Admit Prov: CESIA ARTEAGA Date: 1955 Primary Care Prov: CESIA ARTEAGA CMRN: [id number] Room: [place] SSN: [id number] IMAGING SERVICES Ordering Prov: N/A Interpretation EXAM: RIGHT HUMERUS 2 VIEWS 05/25/2007 Indication: Arm pain. Check stimulator placement. Findings: A wire extends from the shoulder into the soft tissues ofthe inner arm ending in the region of the inner biceps muscle. Bonystructures appear normal. . Dictated by: REUBEN GUPTA 05/25/2007 15:16 Electronically signed by: REUBEN GUPTA 05/26/2007 08:01 Transcribed: 05/25/2007 19:10 SJ Cesia Arteaga MD DIAGNOSTIC IMAGING ORDERABLES Final Result documented in this encounter Visit Diagnoses Diagnosis Brachial plexus lesions documented in this encounter
--- OUTSIDE RECORDS SUMMARY | 2024-05-10 18:59 | XMS_ITS | Encounter Summary ---
Author Organization [email or web address] [facility] Address [address] [place] [address] Care Team Providers Care Educational Assistant Teacher Name Role Phone Unavailable Primary Care Provider Unavailabl e Encounter Details Date Type Department Care Team (Latest Contact Info) Description 07/31/2006 Outpatient Historical [place] [address] [place] [address] [place] [address] Lesion of Ulnar Nerve (Primary Dx) Social History Tobacco Use Types Packs/Day Years Used Date Smoking Tobacco: Never Assessed Sex and Gender Information Value Date Recorded Sex Assigned at Not on file Legal Sex Male 4:29 AM REVENUE FIELD AGENT Gender Identity Not on file Sexual Orientation Not on file documented as of this encounter Plan of Treatment Not on file documented as of this encounter Procedures Procedure Name Priority Date/Time Associated Diagnosis Comments POC GLUCOSE Routine 07/31/2006 8:51 AM CDT documented in this encounter Results * (ABNORMAL) POC GLUCOSE (07/31/2006 8:51 AM CDT) GLUCOSE POC 118(H) 65 - 99 mg/dL INTERFACE SYSTEM 07/31/2006 8:51 AM CDT us Aaron Bridges MD POINT OF CARE TESTING Edited INTERFACE SYSTEM Refer to clinic/hospital department documented in this encounter Visit Diagnoses Diagnosis Lesion of ulnar nerve- Primary documented in this encounter
--- OUTSIDE RECORDS SUMMARY | 2024-05-10 18:59 | XMS_ITS | Clinical Summary ---
Author Organization [facility] Address [address] [facility] Attn: Epic Prelude ADT MARYLU MCCOY [address] Care Team Providers Care Telegraph Installer Name Role Phone Unavailable Primary Care Provider Unavailabl e Social History Tobacco Use Types Packs/Day Years Used Date Smoking Tobacco: Never Assessed Sex and Gender Information Value Date Recorded Sex Assigned at Not on file Legal Sex Male 4:29 AM UPSCALE SECURITY OFFICER Gender Identity Not on file Sexual Orientation Not on file Plan of Treatment Health Maintenance Due Date Last Done Comments DTAP/TDAP/TD VACCINES (1 - Tdap) 1972 COLORECTAL SCREENING 1998 Colorectal Cancer Screening 1998 FIT-DNA Q 3 years 1998 FIT/FOBT Q 1 year 1998 Flex Sig/CT Colonography Q 5 years 1998 PNEUMOCOCCAL VACCINE 65+ YEARS (1 of 1 - PCV) 08/20/19 04 ZOSTER VACCINE (1 of 2) 08/20/2003 INFLUENZA VACCINE (#1) 2023 RSV VACCINE (60+ or ) (1 - 1-dose 75+ series) 2028 Insurance RX SERVRX Commercial
--- OUTSIDE RECORDS SUMMARY | 2024-05-10 18:59 | XMS_ITS | Encounter Summary ---
Author Organization [facility] Address formerly [facility] [place] [address] Care Team Providers Care Dish Person Name Role Phone Ignacio Miranda MD Primary Care Provider Spenser Armendariz MD Unavailable [phone] Encounter Details Date Type Department Care Team (Late Contact Info) Description 01/06/2023 [employer] Message Enc [facility] Family & Internal Medicine [address] [address] [facility] [facility] [place], [facility] Provider results Social History Tobacco Use Types Packs/Day Years [...] Sex Assigned at Male 05/07/2018 3:15 PM CLEANER WALL Legal Sex Male 4:31 PM CDT Gender Identity Male 05/07/2018 3:15 PM CLEANER WALL Sexual Orientation Straight 05/07/2018 3: 15 PM CLEANER WALL documented as of this encounter Plan of Treatment Upcoming Encounters Date Type Department Care Team (Late Contact Info) Description 06/25/2024 10:00 AM CDT Office Visit [facility] [address] [phone] Prasad Santiago MD 3 [facility] [address] [place] [address] 07/21/2024 10:00 AM CDT Laboratory Only [facility] Family & Internal Medicine - [address] [address] Ignacio Miranda MD [address] [place] [address] 07/28/2024 10:40 AM CDT Office Visit [facility] Family & Internal [facility] - [address] [address] Ignacio Miranda MD [address] [place] [address] 10/08/2024 10:00 AM CDT Office Visit [facility] Multispecialty Care - [facility] [address] [facility], [address] [place] [address] Boris Brown MD 3 [place] [address] documented as of this encounter Visit Diagnoses Not on filedocumented in this encounter Additional Health Concerns Infection Onset Date Last Indicated Resolved Time COVID-19 Rule Out 03/10/2023 03/10/2023 03/10/2023 12:12 PM CLEANER WALL COVID-19 Rule Out 03/25/2023 03/25/2023 03/25/2023 2:20 PM CLEANER WALL COVID-19 Rule Out 03/25/2023 03/25/2023 03/27/2023 1:28 AM CLEANER WALL Assessment Noted Time PHQ-9 Depression Total Score: 0 06/21/19 12:50 PM CDT documented as of this encounter Care Teams Dish Person Relationship Specialty Start Date End Date Ignacio Miranda MD [address] [place] [address] PCP - General 10/18/16 Spenser Armendariz MD [address] [place] [address] Consulting Physician UROLOGY 10/05/19 documented as of this encounter
--- OUTSIDE RECORDS SUMMARY | 2024-05-10 18:59 | XMS_ITS | Continuity of Care Document ---
Author Organization [facility] Address [address] [facility] [address] [place] [address] Phone Care Team Providers Care Billet Examiner Name Role Phone Kalyani Colin Unavailable Unavailable Advance Directives Directive Yes / No Effective Date File Name No Information Encounters Encounter Description Practice Location Reason(s) For Visit Diagnoses Date Provider Providers Copied on Encounter [facility], [address], [place], [place], [id number], [place] tel:[phone] [facility] No Information [address] , [address], [place], [address], [place]. tel:[phone] Family History Family Member Type Diagnosis Age At Onset No Information Payers Payer name Insurance type Covered alliance party ID Authoriza tion(s) No Information Social History [...]
--- OUTSIDE RECORDS SUMMARY | 2024-05-10 18:59 | XMS_ITS | Encounter Summary ---
Author Organization [facility] Address [address] [place] [address] Care Team Providers Care Reinforcing Iron And Rebar Workers Name Role Phone Ignacio Miranda MD Primary Care Provider [phone] Spenser Armendariz MD Unavailable [phone] Encounter Details Date Type Department Care Team (Late st Contact Info) Description 05/10/2024 [employer] Message Enc [facility] Medical Group Family & Internal Medicine [address] [place] [phone] Ignacio Miranda MD [address] [place] [address] Not feeling well Social History Tobacco Use Types Packs/Day Years [...] Sex Assigned at Male 05/07/2018 3:15 PM SOCIAL STUDIES DEPARTMENT CHAIR Legal Sex Male 4:31 PM CDT Gender Identity Male 05/07/2018 3:15 PM SOCIAL STUDIES DEPARTMENT CHAIR Sexual Orientation Straight 05/07/2018 3: 15 PM SOCIAL STUDIES DEPARTMENT CHAIR documented as of this encounter Functional Status [...] Author Status No 03/10/2023 3:04 PM Odilia Glaloway RN Active documented as of this encounter Mental Status * Because of a physical, mental, or emotional condition, do you have serious difficulty concentrating, remembering, or making decisions? Answer Entry Date Author Status No 03/10/2023 3:04 PM Odilia Galloway RN Active documented in this encounter Progress Notes * Ignacio Miranda MD - 05/10/2024 4:02 PM CST Would recommend testing for influenza and COVID AL STUDIES DEPARTMENT CHAIR * Elisabet Elizondo - 05/10/2024 3:05 PM CST Tanika called back to check the status of this request. AL STUDIES DEPARTMENT CHAIR documented in this encounter Plan of Treatment Upcoming Encounters Date Type Department Care Team (Late st Contact Info) Description 06/25/2024 10:00 AM CDT Office Visit [facility] [address] Prasad Santiago MD [address] [place] [address] [address] [place] [phone] 07/21/2024 10:00 AM CDT Laboratory Only [facility] Family & Internal [address] [address] Ignacio Miranda MD [address] [place] [address] 07/28/2024 10:40 AM CDT Office Visit [facility] Family & Internal [address] [address] Ignacio Miranda MD [address] [place] [address] 10/08/2024 10:00 AM CDT Office Visit [facility] Multispecialty [facility] [address] [facility], [address] [place] [address] Boris Brown MD 3 [place] [address] documented as of this encounter Goals Goal Patient Goal Type Associated Problems Recent Progress Patient-Stated? Author Health - patient able to perform ADLs independently Lifestyle Michael Membreno RN documented as of this encounter Visit Diagnoses Not on filedocumented in this encounter Additional Health Concerns Assessment Noted Time PHQ-9 Depression Total Score: 0 06/21/19 22 12:50 PM CDT documented as of this encounter Care Teams Reinforcing Iron And Rebar Workers Relationship Specialty Start Date End Date Ignacio Miranda MD [address] [place] [address] PCP - General 10/18/16 Spenser Armendariz MD [address] [place] [address] Consulting Physician UROLOGY 10/05/19 documented as of this encounter
--- OUTSIDE RECORDS SUMMARY | 2024-05-10 18:59 | XMS_ITS | Encounter Summary ---
Author Organization [facility] Address [address] [place] [address] Care Team Providers Care Basin Finish Operator Tig Welder Name Role Phone Ignacio Miranda MD Primary Care Provider [phone] Spenser Armendariz MD Unavailable [phone] Encounter Details Date Type Department Care Team (Late st Contact Info) Description 02/06/2021 [employer] Message [facility] Family [facility] Internal Medicine [id number] [place] [address] Ignacio Miranda MD [facility] [place] [address] Covid 19 booster? Social History Tobacco Use Types Packs/Day Years [...] Sex Assigned at Male 05/07/2018 3:15 PM MOBILE HEAVY EQUIPMENT OPERATOR Legal Sex Male 4:31 PM CDT Gender Identity Male 05/07/2018 3:15 PM MOBILE HEAVY EQUIPMENT OPERATOR Sexual Orientation Straight 05/07/2018 3: 15 PM MOBILE HEAVY EQUIPMENT OPERATOR COVID-19 Exposure Response Date Recorded In the last month, have you been in contact with someone who was confirmed or suspected to have Coronavirus / COVID-19? No / Unsure 01/11/2021 1:18 PM CDT documented as of this encounter Plan of Treatment Upcoming Encounters Date Type Department Care Team (Late st Contact Info) Description 06/25/2024 10:00 AM CDT Office Visit [facility] [address] Prasad Santiago MD 3 [facility] [address] [place] [address] 07/21/2024 10:00 AM CDT Laboratory Only [facility] Family & Internal Medicine - [address] [address] Ignacio Miranda MD [address] [place] [address] 07/28/2024 10:40 AM CDT Office Visit [facility] Family & Internal Medicine - [address] [address] Ignacio Miranda MD [address] [place] [address] 10/08/2024 10:00 AM CDT Office Visit [facility] Multispecialty Care - [facility] [address] [facility], [address] [place] [address] Boris Brown MD 3 [place] [address] documented as of this encounter Visit Diagnoses Not on filedocumented in this encounter Additional Health Concerns Infection Onset Date Last Indicated Resolved Time COVID-19 Rule Out 03/08/2022 03/08/2022 03/08/2022 2:16 PM MOBILE HEAVY EQUIPMENT OPERATOR COVID-19 Rule Out 03/13/2022 03/13/2022 03/13/2022 10:48 AM MOBILE HEAVY EQUIPMENT OPERATOR COVID-19 Rule Out 03/10/2023 03/10/2023 03/10/2023 12:12 PM MOBILE HEAVY EQUIPMENT OPERATOR COVID-19 Rule Out 03/25/2023 03/25/2023 03/25/2023 2:20 PM MOBILE HEAVY EQUIPMENT OPERATOR COVID-19 Rule Out 03/25/2023 03/25/2023 03/27/2023 1:28 AM MOBILE HEAVY EQUIPMENT OPERATOR documented as of this encounter Care Teams Basin Finish Operator Tig Welder Relationship Specialty Start Date End Date Ignacio Miranda MD [address] [place] [address] PCP - General 10/18/16 Spenser Armendariz MD [address] [place] [address] Consulting Physician UROLOGY 10/05/19 documented as of this encounter
--- OUTSIDE RECORDS SUMMARY | 2024-05-10 18:59 | XMS_ITS | Clinical Summary ---
Author Organization [facility] Address [address] [place] [address] Care Team Providers Care Mediator Name Role Phone Ignacio Miranda MD Primary Care Provider [phone] Source Comments [facility],non-owned Affiliates and Associated Physician Practices is amultiple site organization consisting of ambulatory clinics and hospital sitesin [place], [place], [place] and [place]. This disclosure is being madepursuant to the Care Everywhere program and may not contain all information available regarding this patient. Last updated 17.[facility] Allergies Active Allergy Reactions Criticality Noted Date [...] 11/10/2023 ipratropium (ATROVENT) 0.03 % nasal spray [place] 1-2 sprays into each nostril 15-20 minutes [...] (02/11/2022): Added automatically from request for surgery [id number] Dyslipidemia 12/19/2021 Presbyopia 12/13/2021 Astigmatism 12/13/2021 Liver mass 11/16/2020 Hypercholesterolemia 11/09/2020 Solar purpura 04/24/2020 Assessment & Plan (07/31/2020 9:00 AM CDT): Reassured. Assessment & Plan (04/24/2020 3:50 PM TRIAGE REGISTERED NURSE): - Benign, reassurance Other seborrheic dermatitis 04/24/2020 Assessment & Plan (07/31/2020 9:01 AM CDT): - Discussed diagnosis, typical course, and treatment options - Start ketoconazole 2% shampoo tiw to scalp and face - Start hydrocortisone 2.5 % ointment to face daily PRN during flares limit use to one wk. SE discussed. 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 (04/24/2020): Overview: 2006, R parietal scalp, s/p Mohs 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 compound 01/25/2016 Overview (12/13/2021): 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 Controlled type 2 diabetes mellitus without comp lication 12/24/2015 Chronic GERD 06/17/2012 Vitamin D deficiency 09/19/2011 Immunizations Name Administration Dates Next Due INFLUENZA VACCINE 12/14/2021,,01/19/2020,12/31/2018,01/23/20 18 PNEUMOCOCCAL PPSV23 01/19/2020 Pneumococcal Pcv13 Conj 12/31/2018 Family History Medical History Relation Name Comments Cancer - Other Brother None Known Father None Known Maternal Aunt None Known Maternal Grandfather None Known Maternal Grandmother None Known Maternal Uncle None Known Mother None Known Other None Known Paternal Aunt None Known Paternal Grandfather None Known Paternal Grandmother None Known Paternal Uncle None Known Sister Asthma Neg Hx CVA Neg Hx Cancer - Breast Neg Hx Cancer - Skin, Melanoma Neg Hx Cancer - Skin, Non Melanoma Neg Hx Eczema Neg Hx Hemophilia Neg Hx Psoriasis Neg Hx Relation Name Status Comments Brother Father Maternal Aunt Maternal Grandfather Maternal Grandmother Maternal Uncle Mother Other Paternal Aunt Paternal Grandfather Paternal Grandmother Paternal Uncle Sister Social History Tobacco Use Types Packs/Day Years [...] 36.4 C (97.6 F) 04/24/2020 3:31 PM TRIAGE REGISTERED NURSE Respiratory Rate - - Oxygen Saturation - - Inhaled Oxygen Concentration - - Weight - - Height - - Body Mass Index - - Plan of Treatment Upcoming Encounters Date Type Department Care Team (Late st Contact Info) Description 07/05/2024 9:00 AM CDT Office Visit [facility] - Dermatology [address] [place] [address], [place] [phone] Bismark Ash MD [address] [place] [address] [address] [place] [address] Health Maintenance Due Date Last Done Comments COLOGUARD (AGES 45-75) - COLON CA SCREENING 1953 COLON MONITORING 1953 COLONOSCOPY - COLON CA SCREENING 1953 CT COLONOGRAPHY - COLON CA SCREENING 1955 Colorectal Cancer Screening 1953 FIT - COLON CA SCREENING 1953 FLEX SIG - COLON CA SCREENING 1953 HEPATITIS C SCREENING 08/15/1971 DTAP/TDAP/TD VACCINES (1 - Tdap) 1972 ZOSTER VACCINE (1 of 2) 08/20/2003 Respiratory Syncytial Virus (RSV) Vaccine Pt: or over 60 yrs (1 - Risk 60-74 years 1-dose series) 2013 DIABETES RETINOPATHY SCREENING 04/24/2020 02/25/2013 DIABETES-FOOT EXAM WITH MONOFILAMENT 04/24/2020 COVID-19 VACCINE ( - season) 2023 02/06/2022, 02/27/2021, 06/28/2020, Additional history exists INFLUENZA VACCINE (#1) 2023 2, 01/11/2021, 01/19/2020, Additional history exists DEPRESSION SCREENING 03/24/2024 DIABETES - URINE PROTEIN SCREENING 03/24/2024 12/19/2022 DIABETES-HGB A1C 05/13/2024 11/11/2023, , 03/04/2023, Additional history exists DIABETES-SERUM CREATININE 11/24/20242023, 11/25/2023, 03/10/2023, Additional history exists PNEUMOCOCCAL VACCINE 50+ Completed 01/19/2020, 12/22 HEPATITIS B VACCINE Aged Out No longe r eligible based on patient's age to complete this topic HIB VACCINE Aged Out No longer eligi ble based on patient's age to complete this topic HPV VACCINE Aged Out No longer eligi ble based on patient's age to complete this topic MENINGOCOCCAL (Group B) VACCINE Aged Out No longer eligible based on patient's age to complete this topic MENINGOCOCCAL VACCINE Aged Out No laurel daquan eligible based on patient's age to complete this topic Care Teams Mediator Relationship Specialty Start Date End Date Ignacio Miranda MD PCP - General 02/01/08
--- OUTSIDE RECORDS SUMMARY | 2024-05-10 18:59 | XMS_ITS | Encounter Summary ---
Author Organization [facility] Address [facility] [place] [address] Care Team Providers Care Crystal Report Developer Name Role Phone Ignacio Miranda MD Primary Care Provider [phone] Spenser Armendariz MD Unavailable [phone] Encounter Details Date Type Department Care Team (Late st Contact Info) Description 07/27/2021 [employer] Message Enc [facility] Medical Group Family & Internal Medicine [address] [place] [address] Ignacio Miranda MD [facility] [place] [address] Chest X-ray? Social History Tobacco Use Types Packs/Day Years [...] please move on to questions 3-9 0 06/20/2021 Sex and Gender Information Value Date Recorded Sex Assigned at Male 05/07/2018 3:15 PM CERTIFIED FIRE INVESTIGATOR Legal Sex Male 4:31 PM CDT Gender Identity Male 05/07/2018 3:15 PM CERTIFIED FIRE INVESTIGATOR Sexual Orientation Straight 05/07/2018 3: 15 PM CERTIFIED FIRE INVESTIGATOR documented as of this encounter Progress Notes * Ignacio Miranda MD - 07/29/2021 10:04 PM CDT Chest x-ray should be done 1 month after his last visit. documented in this encounter Plan of Treatment Upcoming Encounters Date Type Department Care Team (Late st Contact Info) Description 06/25/2024 10:00 AM CDT Office Visit [facility] [address] Prasad Santiago MD [address] [facility] [address] [place] [phone] 07/21/2024 10:00 AM CDT Laboratory Only [facility] Family & Internal Medicine - [address] [address] [place] [address] [place] [address] 07/28/2024 10:40 AM CDT Office Visit [facility] Family & Internal [facility] - [address] [address] Ignacio Miranda MD [address] [place] [address] 10/08/2024 10:00 AM CDT Office Visit [facility] Multispecialty Care - [facility] [address] [facility], [address] [place] [address] Boris Brown MD 3 [place] [address] documented as of this encounter Visit Diagnoses Not on filedocumented in this encounter Additional Health Concerns Infection Onset Date Last Indicated Resolved Time COVID-19 Rule Out 03/08/2022 03/08/2022 03/08/2022 2:16 PM CERTIFIED FIRE INVESTIGATOR COVID-19 Rule Out 03/13/2022 03/13/2022 03/13/2022 10:48 AM CERTIFIED FIRE INVESTIGATOR COVID-19 Rule Out 03/10/2023 03/10/2023 03/10/2023 12:12 PM CERTIFIED FIRE INVESTIGATOR COVID-19 Rule Out 03/25/2023 03/25/2023 03/25/2023 2:20 PM CERTIFIED FIRE INVESTIGATOR COVID-19 Rule Out 03/25/2023 03/25/2023 03/27/2023 1:28 AM CERTIFIED FIRE INVESTIGATOR Assessment Noted Time PHQ-9 Depression Total Score: 0 06/21/19 22 12:50 PM CDT documented as of this encounter Care Teams Crystal Report Developer Relationship Specialty Start Date End Date Ignacio Miranda MD [address] [place] [address] PCP - General 10/18/16 Spenser Armendariz MD [address] [place] [address] Consulting Physician UROLOGY 10/05/19 documented as of this encounter
[2024-05-10 19:19] VITALS: BP 165/84; PULSE 93; RESP 20; TEMP 37.2; O2SAT 99
--- NOTE | 2024-05-10 19:28 | ED_ITS ---
HPI - URI/Sore Throat General Chief Complaint: Upper Respiratory Infection Stated Complaint: vomiting,and sore throat Time Seen by Provider: 05/10/24 19:29 Source: patient and RN notes reviewed Mode of arrival: ambulatory Limitations: no limitations History of Present Illness HPI Narrative: 68-year-old male presented for complaint of nausea, vomiting, and diarrhea. Onset today. Reports yesterday he started with headache and nasal congestion. Reports bilateral rib pain from coughing and vomiting. Denies abdominal pain, fever, hematemesis, hematochezia, melena or lethargy. Not taking anything for symptoms. Had meningitis 02/2024. Related Data Home Medications ?Medication ?Instructions ?Recorded ?Confirmed ?Last Taken ?Type blood sugar diagnostic (Contour 11/29/23 11/29/23 Unknown History Next Test Strips) empagliflozin 25 mg tablet 25 mg PO DAILY 11/29/23 11/29/23 Unknown History (Jardiance) finasteride 5 mg tablet 5 mg PO DAILY 11/29/23 11/29/23 Unknown History gabapentin 100 mg capsule 100 mg PO TID 11/29/23 11/29/23 Unknown History glimepiride 2 mg tablet 2 mg PO DAILY 11/29/23 11/29/23 Unknown History lisinopril 10 mg tablet 10 mg PO DAILY 11/29/23 11/29/23 Unknown History meloxicam 15 mg tablet 15 mg PO DAILY 11/29/23 11/29/23 Unknown History metformin 500 mg tablet,extended 1,000 mg PO BID 11/29/23 11/29/23 Unknown History release 24 hr prednisone 20 mg tablet See Rx Instructions .Route .COMPLEX 11/29/23 11/29/23 Unknown History rosuvastatin 10 mg tablet 10 mg PO DAILY 11/29/23 11/29/23 Unknown History semaglutide 14 mg tablet (Rybelsus) 14 mg PO DAILY 11/29/23 11/29/23 Unknown History sildenafil 100 mg tablet 100 mg PO PRN PRN Erectile 11/29/23 11/29/23 Unknown History Dysfunction tamsulosin 0.4 mg capsule 0.4 mg PO DAILY 11/29/23 11/29/23 Unknown History Allergies Allergy/AdvReac Type Severity Reaction Status Date / Time calamine AdvReac Mild Hives Verified 05/10/24 19:21 diphenhydramine AdvReac Mild Hives Verified 05/10/24 19:21 prednisone AdvReac Mild Hives Verified 05/10/24 19:21 Sulfa (Sulfonamide AdvReac Mild Hives Verified 05/10/24 19:21 Antibiotics) TRIAMCINOLONE ACETONIDE AdvReac Mild Hives Uncoded 05/10/24 19:21 Review of Systems Review of Systems: Per HPI All systems reviewed & are unremarkable except as noted in HPI and below PMFSH Past Medical History Medical History Broken ribs Skin cancer of scalp Type 2 diabetes mellitus GERD (gastroesophageal reflux disease) Hiatal hernia Neurological abnormality pinch ulnar nerve, 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 Please see nursing chart for further information. There is no relevant family history pertinent to the presenting complaint Exam Narrative: GENERAL: well-appearing, no acute distress. EYES: conjunctivae clear ENT: Mucous membranes moist. TM pearly tirado with normal light reflex bilaterally; no tragal tenderness. Oropharynx erythematous without lesions. No drooling, no hoarseness, no trismus, uvula midline. No tripod positioning, hot potato voice, or soft palate swelling. NECK: Supple. No lymphadenopathy CHEST: Clear to auscultation, breath sounds equal. No respiratory distress, speaks in full sentences. HEART: Regular rate and rhythm. No murmur heard. ABD: soft, flat nontender. BS positive. SKIN: Warm, dry, no rash. NEURO: Alert and oriented x3. Course Course Emergency Course: Patient is aware of diagnosis, understands and agrees to treatment plan. Anticipatory guidance given. Patient agrees to follow-up as directed and is aware of reasons to seek care at the emergency department. Portions of this record may have been created with voice recognition software Level of Care: Express Care Visit Vital Signs Vital signs: Vital Signs Temperature 99.0 F 05/10/24 19:19 Pulse Rate 93 05/10/24 19:19 Respiratory Rate 20 05/10/24 19:19 Blood Pressure 165/84 H 05/10/24 19:19 Pulse Oximetry 99 05/10/24 19:19 Oxygen Delivery Room Air 05/10/24 19:19 Temperature 99.0 F 05/10/24 19:19 Pulse Rate 93 05/10/24 19:19 Respiratory Rate 20 05/10/24 19:19 Blood Pressure 165/84 H 05/10/24 19:19 Pulse Oximetry 99 05/10/24 19:19 Oxygen Delivery Room Air 05/10/24 19:19 MDM - URI/Sore Throat MDM Narrative Medical decision making narrative: Negative flu and COVID, result reviewed with pt. Advise supportive treatments. Patient is appropriate for outpatient treatment and follow-up. Differential Diagnosis Differential diagnosis: Likely upper respiratory infection, viral infection and pharyngitis Discharge Plan Discharge Clinical Impression: Viral infection Patient Disposition: Home, Self-Care Condition: Stable Instructions: Gastroenteritis (ED) Additional Instructions: Flu and COVID negative today. It may be too early to detect the virus, therefore we recommend retesting at home in 1-2 days Continue to follow general precautions: frequent handwashing, wear a mask, isolate/social distance, and avoid crowds if you have a fever. You must be fever free for 24 hours without the use of fever reducing medication (Tylenol/ibuprofen) before returning to work/school/crowds. Stay hydrated. Take small sips of fluid containing electrolytes frequently. Clear liquids (broth, jello, tea, sprite, pedialyte) [place] foods (bananas, rice, applesauce, toast, crackers) Avoid fatty, greasy, fried or spicy foods. Limit dairy until symptoms are improved. [id number] Imodium according to package directions as needed for diarrhea Recommend probiotic such as align or lactobacillus to help with symptoms. Take the prescribed ondansetron as needed for nausea/vomiting You should go to the hospital if you experience persistent nausea and vomiting that does not resolve and does not allow you to tolerate any food or fluids, fevers, increasing abdominal pain, persistent diarrhea, dizziness, fainting, or for any other concerns. Follow up with primary care provider in 3 days. Patient Language: Romansh Prescriptions: New ondansetron 4 mg tablet,disintegrating 4 mg PO Q8H PRN (Reason: nausea and vomiting) Qty: 12 0RF No Action meloxicam 15 mg tablet 15 mg PO DAILY prednisone 20 mg tablet See Rx Instructions .ROUTE .COMPLEX Rx Instructions: mg (DME) Contour Next Test Strips Strip MISCELLANEOUS sildenafil 100 mg tablet 100 mg PO PRN PRN (Reason: Erectile Dysfunction) glimepiride 2 mg tablet 2 mg PO DAILY tamsulosin 0.4 mg capsule 0.4 mg PO DAILY lisinopril 10 mg tablet 10 mg PO DAILY gabapentin 100 mg capsule 100 mg PO TID metformin 500 mg tablet extended release 24 hr 1,000 mg PO BID finasteride 5 mg tablet 5 mg PO DAILY rosuvastatin 10 mg tablet 10 mg PO DAILY Jardiance 25 mg tablet 25 mg PO DAILY Rybelsus 14 mg tablet 14 mg PO DAILY Follow-up/Referrals: Ruth,Ignacio Rand MD [Primary Care Provider] - Time of Disposition: 19:36
[2024-05-10 19:41] LABS: EDCOVIDSCREEN Negative (Negative); EDINFLUASCREEN Negative (Negative); EDINFLUBSCREEN Negative (Negative)
== END 2024-05-10 19:37 | disposition home or self-care (01) ==
PROVIDERS: Emergency Provider Nurse Practitioner Family; PCP Internal Medicine
DX: B34.9 Viral infection, unspecified (principal); Z20.822 Contact with and (suspected) exposure to COVID-19; E11.9 Type 2 diabetes mellitus without complications; Z79.84 Long term (current) use of oral hypoglycemic drugs; K21.9 Gastro-esophageal reflux disease without esophagitis; Z85.828 Personal history of other malignant neoplasm of skin; Z86.61 Personal history of infections of the central nervous system
CPT/HCPCS: 87426; 87804; 99213; G0463